=== PATIENT | male | born 1975 | race Caucasian/White ===

== ENCOUNTER 2016-10-13 19:38 | Emergency (ER) | payer SELFPAY ==
--- NOTE | 2016-10-13 20:19 | EKG REPORT ---
SEVERITY:- ABNORMAL ECG - SINUS RHYTHM PROBABLE INFERIOR INFARCT, OLD LATERAL LEADS ARE ALSO INVOLVED BORDERLINE PROLONGED QT INTERVAL : Confirmed by: Mike Hernández MD 13-Oct-2016 20:18:35
--- NOTE | 2016-10-13 23:47 | ER Document Report ---
ED Blood Pressure Problem - General Mode of Arrival: Ambulatory Information source: Patient TRAVEL OUTSIDE OF THE [place] IN LAST 30 DAYS: No - HPI Patient complains to provider of: High blood pressure Associated symptoms: Blurred vision, Headache Similar symptoms previously: Yes Recently seen / treated by doctor: No <RACHEL CHAPMAN - Last Filed: 10/14/16 03:44> <ZELALEM DIMAS - Last Filed: 10/14/16 05:45> - General Chief Complaint: High Blood Pressure Stated Complaint: BLOOD PRESSURE ISSUE Time Seen by Provider: 10/13/16 23:46 Notes: Patient is a 41-year-old male presented to the emergency department with hypertension, headache, vision changes and photophobia. Patient states that he has been out of his lisinopril and is almost out of his metformin. Patient has not taken his blood pressure medication at least 30 days. Patient has a history of noncompliance with his medications. Patient states he was at [facility] today when he started experiencing the headache, blurred vision and some photophobia. Patient states he is supposed to see Sharif Vidal however nurse states the patient cannot see this provider because he did not make his payment. (RACHEL CHAPMAN) - Related Data Allergies/Adverse Reactions: No Known Allergies Allergy (Verified 02/23/15 13:58) Past Medical History - General Information source: Patient - Social History Smoking Status: Never Smoker Cigarette use (# per day): No Chew tobacco use (# tins/day): No Smoking Education Provided: No Frequency of alcohol use: None Drug Abuse: None Family History: None Patient has suicidal ideation: No Patient has homicidal ideation: No - Past Medical History Cardiac Medical History: Reports: Hx Hypercholesterolemia, Hx Hypertension Pulmonary Medical History: Reports: Hx Bronchitis Endocrine Medical History: Reports: Hx Diabetes Mellitus Type 2 Past Surgical History: Reports: Hx Neurologic Surgery - Elevation of a depressed skull fracture at age 67 years old. - Immunizations Hx Diphtheria, Pertussis, Tetanus Vaccination: Yes <RACHEL CHAPMAN - Last Filed: 10/14/16 03:44> Review of Systems - Review of Systems Constitutional: No symptoms reported EENT: See HPI, Blurred vision, Other - Photophobia Cardiovascular: No symptoms reported Respiratory: No symptoms reported Gastrointestinal: No symptoms reported Genitourinary: No symptoms reported Male Genitourinary: No symptoms reported Musculoskeletal: No symptoms reported Skin: No symptoms reported Hematologic/Lymphatic: No symptoms reported Neurological/Psychological: See HPI, Headaches -: Yes All other systems reviewed and negative <RACHEL CHAPMAN - Last Filed: 10/14/16 03:44> Physical Exam - Vital signs Interpretation: Hypertensive <RACHEL CHAPMAN - Last Filed: 10/14/16 03:44> <ZELALEM DIMAS - Last Filed: 10/14/16 05:45> - Vital signs Vitals: Temp Pulse Resp BP Pulse Ox 97.6 F 79 20 200/120 H 96 10/13/16 19:44 10/13/16 19:44 10/13/16 19:44 10/13/16 19:44 10/13/16 19:44 - Notes Notes: GENERAL: Alert, interacts well. Mild distress. HEAD: Normocephalic, atraumatic. Tenderness to palpate the forehead, and bilateral parietal lobe. EYES: Appear normal. Pupils equal, round, and reactive to light. ENT: Moist mucus membranes, tongue midline. NECK: Full range of motion. Supple. Trachea midline. Tenderness to palpate posterior cervical musculature. LUNGS: Clear to auscultation bilaterally, no wheezes, rales, or rhonchi. No respiratory distress. HEART: Hypertensive. Regular rate and rhythm. No murmurs, gallops, or rubs. ABDOMEN: Soft, non-tender. Non-distended. Normal bowel sounds. EXTREMITIES: Moves all 4 extremities spontaneously. Normal strength. No edema. NEUROLOGICAL: Alert and oriented x3. Normal speech. No focal neurological deficits. GSC 15. PSYCH: Normal affect, normal mood. SKIN: Warm, dry, normal turgor. No rashes or lesions noted. (RACHEL CHAPMAN) Course <RACHEL CHAPMAN - Last Filed: 10/14/16 03:44> - EKG Interpretation by Ri EKG shows normal: Sinus rhythm Rate: Normal Rhythm: NSR <ZELALEM DIMAS - Last Filed: 10/14/16 05:45> - Re-evaluation Re-evalutation: 10/14/16 Patient is a 41-year-old male who comes in complaining of a headache and blurred vision intermittently. He had also written shortness of breath on his intake paperwork although patient denies any symptoms right now except for a slight headache. Patient is supposed to be taking medication for high blood pressure but he has not been able to afford it. He is also almost out of his metformin. Patient given lisinopril. Blood pressure has come down to 150s systolic. Complete resolution of headache. No chest pain or trouble breathing. Patient will be discharged home with lisinopril and a refill of Glucophage and [facility]. Understands and agrees with plan. Stable for discharge. (ZELALEM DIMAS) - Vital Signs Vital signs: Temp Pulse Resp BP Pulse Ox 97.6 F 79 18 153/84 H 94 10/13/16 19:44 10/13/16 19:44 10/14/16 03:01 10/14/16 03:01 10/14/16 03:01 Discharge <RACHEL CHAPMAN - Last Filed: 10/14/16 03:44> <ZELALEM DIMAS - Last Filed: 10/14/16 05:45> - Discharge Clinical Impression: Hypertension Qualifiers: Hypertension type: unspecified Qualified Code(s): I10 - Essential (primary) hypertension Diabetes mellitus Qualifiers: Diabetes mellitus type: type 2 Diabetes mellitus complication status: without complication Headache Qualifiers: Headache type: tension-type Headache chronicity pattern: acute headache Intractability: not intractable Qualified Code(s): G44.209 - Tension-type headache, unspecified, not intractable Condition: Stable Disposition: HOME, SELF-CARE Instructions: Family Physicians / Practices, Headache ([facility]), High Blood Pressure ([facility]) Additional Instructions: Please follow-up with the primary care doctor as soon as you are able. Prescriptions: Lisinopril 20 mg PO DAILY #90 tablet Metformin HCl [Glucophage 500 mg Tablet] 500 mg PO BIDACBS #180 tab Scribe Attestation: 10/14/16 05:45 I personally performed the services described in the documentation, reviewed and edited the documentation which was dictated to the scribe in my presence, and it accurately records my words and actions. (ZELALEM DIMAS) Scribe Documentation - Scribe Written by Michi:: Michi Mora, 10/14/2016 4:00 acting as scribe for :: Nunu <RACHEL CHAPMAN - Last Filed: 10/14/16 03:44>
[2016-10-14] MEDS ORDERED: ONDANSETRON 4 MG TAB.RAPDIS PO ONE (01:08)
[2016-10-14] MEDS ORDERED: LISINOPRIL 10 MG TABLET PO ONE (01:08)
[2016-10-14] MEDS ORDERED: ACETAMINOPHEN 325 MG TABLET PO ONE (01:08)
[2016-10-14 03:06] VITALS: BP 153/84
== END 2016-10-14 03:10 | disposition home or self-care (01) ==
LOC: ER 19:38
DX: I10 Essential (primary) hypertension (principal); T46.4X6A Underdosing of angiotensin-converting-enzyme inhibitors, initial encounter; Z91.120 Patient's intentional underdosing of medication regimen due to financial hardship; Z91.14 Patient's other noncompliance with medication regimen; E11.9 Type 2 diabetes mellitus without complications; Z79.84 Long term (current) use of oral hypoglycemic drugs; G44.209 Tension-type headache, unspecified, not intractable; H53.149 Visual discomfort, unspecified; H53.8 Other visual disturbances
CPT/HCPCS: 93005; 99283; 93010; S0119

== ENCOUNTER 2016-12-02 09:09 | Emergency (ER) | payer SELFPAY ==
[2016-12-02] MEDS ORDERED: CLONIDINE HCL 0.2 MG TABLET PO ONE (09:33)
--- NOTE | 2016-12-02 09:38 | ER Document Report ---
ED General - General Chief Complaint: High Blood Pressure Stated Complaint: HEADACHE BLURRED VISION Time Seen by Provider: 12/02/16 09:26 Mode of Arrival: Ambulatory Information source: Patient Notes: 41 yr old male non compliant with his htn and diabetes medications and has been seen here in the past for the same presents with complaints of high blood pressure , headache. Pt notes his blood pressure is normally 200s/110. states that he just started taking his lisinopril as prescribed , does not check his blood sugar and does not go to a pcp. currently patient is asymptomatic. TRAVEL OUTSIDE OF THE [place] IN LAST 30 DAYS: No - HPI Onset: Other Onset/Duration: Persistent Quality of pain: Achy Severity: Mild Pain Level: 1 Associated symptoms: Headache, Other Exacerbated by: Denies Relieved by: Denies Similar symptoms previously: Yes Recently seen / treated by doctor: Yes - Related Data Allergies/Adverse Reactions: No Known Allergies Allergy (Verified 02/23/15 13:58) Past Medical History - Social History Smoking Status: Never Smoker Cigarette use (# per day): No Chew tobacco use (# tins/day): No Smoking Education Provided: No Family History: None - Past Medical History Cardiac Medical History: Reports: Hx Hypercholesterolemia, Hx Hypertension Pulmonary Medical History: Reports: Hx Bronchitis Endocrine Medical History: Reports: Hx Diabetes Mellitus Type 2 Renal/ Medical History: Denies: Hx Peritoneal Dialysis Skin Medical History: Denies Hx MRSA Past Surgical History: Reports: Hx Neurologic Surgery - Elevation of a depressed skull fracture at age 67 years old. - Immunizations Hx Diphtheria, Pertussis, Tetanus Vaccination: Yes Review of Systems - Review of Systems Notes: REVIEW OF SYSTEMS: CONSTITUTIONAL : Denies fever, chills, or sweats. Denies recent illness. EENT: admits to intermittent bloody noses CARDIOVASCULAR: Denies chest pain. Denies palpitations or racing or irregular heart beat. Denies ankle edema. RESPIRATORY: Denies cough, cold, or chest congestion. Denies shortness of breath, difficulty breathing, or wheezing. GASTROINTESTINAL: Denies abdominal pain or distention. Denies nausea, vomiting , or diarrhea. Denies blood in vomitus, stools, or per rectum. Denies black, tarry stools. Denies constipation. GENITOURINARY: Denies difficulty urinating, painful urination, burning, frequency, blood in urine, or discharge. MUSCULOSKELETAL: Denies back or neck pain or stiffness. Denies joint pain or swelling. SKIN: Denies rash, lesions or sores. HEMATOLOGIC : Denies easy bruising or bleeding. LYMPHATIC: Denies swollen, enlarged glands. NEUROLOGICAL: admits to headache PSYCHIATRIC: Denies anxiety or stress. Denies depression, suicidal ideation, or homicidal ideation. ALL OTHER SYSTEMS REVIEWED AND NEGATIVE. Dictation was performed using [employer] voice recognition software PHYSICAL EXAMINATION: GENERAL: Well-appearing, well-nourished and in no acute distress. HEAD: Atraumatic, normocephalic. EYES: Pupils equal round and reactive to light, extraocular movements intact, sclera anicteric, conjunctiva are normal. ENT: Nares patent, oropharynx clear without exudates. Moist mucous membranes. NECK: Normal range of motion, supple without lymphadenopathy LUNGS: Breath sounds clear to auscultation bilaterally and equal. No wheezes rales or rhonchi. HEART: Regular rate and rhythm without murmurs ABDOMEN: Soft, nontender, nondistended abdomen. No guarding, no rebound. No masses appreciated. Musculoskeletal: Normal range of motion, no pitting or edema. No cyanosis. NEUROLOGICAL: Cranial nerves grossly intact. Normal speech, normal gait. Normal sensory, motor exams PSYCH: Normal mood, normal affect. SKIN: Warm, Dry, normal turgor, no rashes or lesions noted. Physical Exam - Vital signs Vitals: Temp Pulse Resp BP Pulse Ox 97.5 F 89 16 213/119 H 96 12/02/16 09:15 12/02/16 09:15 12/02/16 09:15 12/02/16 09:15 12/02/16 09:15 Course - Re-evaluation Re-evalutation: 12/02/16 09:37 pt is a very noncomplaint hypertensive diabetic who presents with chronically elevated blood pressure. i will treat with clonidine. I will order cbc cmp and hga1c. 12/02/16 10:[address] Cuevas regarding hemoglobin A1c metformin with glucotrol 5mg daily 12/02/16 10:36 Patient's blood pressure dropped approximately 20% we will discharge home He is asymptomatic at this time After performing a Medical Screening Examination, I estimate there is LOW risk for ACUTE GLAUCOMA, TEMPORAL ARTERITIS, MENINGITIS, INCRANIAL HEMORRHAGE, or ISCHEMIC STROKE thus I consider the discharge disposition reasonable. I have reevaluated this patient multiple times and no significant life threatening changes are noted. The patient and I have discussed the diagnosis and risks, and we agree with discharging home with close follow-up with the understanding that symptoms and presentations can change. We also discussed returning to the Emergency Department immediately if new or worsening symptoms occur. We have discussed the symptoms which are most concerning (e.g., changing or worsening symptoms, new numbness or weakness, vomiting, fever) that necessitate immediate return. - Vital Signs Vital signs: Temp Pulse Resp BP Pulse Ox 97.5 F 89 16 213/119 H 96 12/02/16 09:15 12/02/16 09:15 12/02/16 09:15 12/02/16 09:15 12/02/16 09:15 - Laboratory Result Diagrams: 12/02/16 09:43 12/02/16 09:43 Laboratory results interpreted by me: 12/02/16 12/02/16 09:43 09:43 Chloride 97 L Carbon Dioxide 31 H Glucose 376 H Hemoglobin A1c % 12.6 H ALT 80 H - Diagnostic Test Radiology reviewed: Image reviewed, Reports reviewed - sinusitis Discharge - Discharge Clinical Impression: Sinusitis Qualifiers: Sinusitis location: frontal Chronicity: subacute Qualified Code(s): J01.10 - Acute frontal sinusitis, unspecified HTN (hypertension) Qualifiers: Hypertension type: essential hypertension Qualified Code(s): I10 - Essential ( primary) hypertension Uncontrolled diabetes mellitus Qualifiers: Diabetes mellitus type: type 2 Diabetes mellitus complication status: without complication Diabetes mellitus detention insulin use: without detention use Qualified Code(s): E11.65 - Type 2 diabetes mellitus with hyperglycemia Condition: Stable Disposition: HOME, SELF-CARE Instructions: High Blood Pressure ([facility]), High Blood Pressure, Requiring Treatment ([facility]), Clonidine (Catapres) ([facility]), Sinusitis ([facility]), Diabetes ([facility]) Prescriptions: Amoxicillin 875 mg PO BID #20 tablet Clonidine HCl [Clonidine HCl ER] 0.2 mg PO Q12 #60 tab.er.12h Glipizide [Glipizide Xl] 5 mg PO DAILY #30 tab.er.24 Referrals: KARISHMA CAN MD [ACTIVE STAFF] - Follow up tomorrow
[2016-12-02 09:54] LABS: ABSOLUTE BASOPHILS # (AUTO) 0.1 10^3/uL (0.0-0.2); ABSOLUTE EOSINOPHILS # (AUTO) 0.2 10^3/uL (0.0-0.6); ABSOLUTE LYMPHOCYTES (AUTO) 2.7 10^3/uL (0.5-4.7); ABSOLUTE MONOCYTES (AUTO) 0.6 10^3/uL (0.1-1.4); ABSOLUTE NEUT (AUTO) 4.7 10^3/uL (1.7-8.2); BASOPHILS % (AUTO) 0.7 % (0-2); EOSINOPHILS % (AUTO) 2.7 % (0-6); HEMATOCRIT 43.9 % (37.9-51.0); HEMOGLOBIN 15.5 g/dL (13.5-17.0); HGB HCT DIFFERENCE 2.6; LYMPHOCYTES % (AUTO) 32.5 % (13-45); MEAN CORPUSCULAR HEMOGLOBIN 28.3 pg (27.0-33.4); MEAN CORPUSCULAR HGB CONC 35.2 g/dL (32.0-36.0); MEAN CORPUSCULAR VOLUME 80 fl (80-97); MONOCYTES % (AUTO) 7.7 % (3-13); RED BLOOD COUNT 5.47 10^6/uL (4.35-5.55); RED CELL DISTRIBUTION WIDTH 12.9 % (11.5-14.0); SEGMENTED NEUTROPHILS % (AUTO) 56.4 % (42-78); WHITE BLOOD COUNT 8.3 10^3/uL (4.0-10.5)
[2016-12-02 10:12] LABS: ALANINE AMINOTRANSFERASE 80 U/L (21-72); ALBUMIN 3.9 g/dL (3.5-5.0); ALKALINE PHOSPHATASE 100 U/L (38-126); ANION GAP 11 (5-19); ASPARTATE AMINO TRANSFERASE 38 U/L (17-59); BILIRUBIN,DIRECT 0.4 mg/dL (0.0-0.4); BILIRUBIN,TOTAL 0.5 mg/dL (0.2-1.3); BLOOD UREA NITROGEN 10 mg/dL (7-20); CALCIUM 10.1 mg/dL (8.4-10.2); CARBON DIOXIDE 31 mmol/L (22-30); CHLORIDE 97 mmol/L (98-107); CREATININE RESULT 0.72 mg/dL (0.52-1.25); GLUCOSE 376 mg/dL (75-110); POTASSIUM 4.3 mmol/L (3.6-5.0); SODIUM 139.1 mmol/L (137-145); TOTAL PROTEIN 6.7 g/dL (6.3-8.2)
--- NOTE | 2016-12-02 10:26 | RADIOLOGY REPORT (SQ) ---
EXAM DESCRIPTION: CT HEAD WITHOUT COMPLETED DATE/TIME: 12/02/2016 9:52 am REASON FOR STUDY: headache , htn COMPARISON: 05/15/2008 TECHNIQUE: Axial images acquired through the brain without intravenous contrast. Images reviewed wi th bone, brain and subdural windows. Images stored on PACS. All CT scanners at this facility use dose modulation, iterative reconstruction, and/or weight based d osing when appropriate to reduce radiation dose to as low as reasonably achievable (ALARA). [facility]: Dose Right [facility]: CareDose [facility]: Dose Right [facility]: Teradose 4D [facility]: Smart ARKeX RADIATION DOSE: Up-to-date CT equipment and radiation dose reduction techniques were employed. CTDIv ol: 64.6 mGy. DLP: 1034 mGy-cm. mGy. LIMITATIONS: None. FINDINGS: VENTRICLES: Normal size and contour. CEREBRUM: No masses. No hemorrhage. No midline shift. No evidence for acute infarction. Normal gra y/white matter differentiation. No areas of low density in the white matter. CEREBELLUM: No masses. No hemorrhage. No alteration of density. No evidence for acute infarction. EXTRAAXIAL SPACES: No fluid collections. No masses. ORBITS AND GLOBE: No intra- or extraconal masses. Normal contour of globe without masses. CALVARIUM: No fracture. PARANASAL SINUSES: Mucoperiosteal thickening is seen in both maxillary sinuses, left more than right, the ethmoid air cells and sphenoid sinuses. SOFT TISSUES: No mass or hematoma. OTHER: No other significant finding. IMPRESSION: Extensive sinus disease with no acute intracranial pathology. EVIDENCE OF ACUTE STROKE: NO. COMMENT: Quality ID # [id number]: Final reports with documentation of one or more dose reduction techniques (e.g., Automated exposure control, adjustment of the mA and/or kV according to patient size, use of iterative reconstruction technique) TECHNICAL DOCUMENTATION: JOB ID: [id number] [employer]- All Rights Reserved
[2016-12-02 11:21] VITALS: BP 149/97
== END 2016-12-02 11:10 | disposition home or self-care (01) ==
LOC: ER 09:09
DX: J01.10 Acute frontal sinusitis, unspecified (principal); E11.65 Type 2 diabetes mellitus with hyperglycemia; I10 Essential (primary) hypertension; R51 Headache; H53.8 Other visual disturbances; Z79.899 Other long term (current) drug therapy
CPT/HCPCS: 36415; 70450; 80053; 83036; 85025; 99284

== ENCOUNTER 2017-03-11 07:14 | Emergency (ER) | payer SELFPAY ==
[2017-03-11] MEDS ORDERED: CLONIDINE HCL 0.1 MG TABLET PO ONE (08:06)
[2017-03-11 08:17] LABS: ABSOLUTE BASOPHILS # (AUTO) 0.1 10^3/uL (0.0-0.2); ABSOLUTE EOSINOPHILS # (AUTO) 0.1 10^3/uL (0.0-0.6); ABSOLUTE LYMPHOCYTES (AUTO) 3.4 10^3/uL (0.5-4.7); ABSOLUTE MONOCYTES (AUTO) 0.9 10^3/uL (0.1-1.4); ABSOLUTE NEUT (AUTO) 5.3 10^3/uL (1.7-8.2); BASOPHILS % (AUTO) 0.7 % (0-2); EOSINOPHILS % (AUTO) 1.5 % (0-6); HEMATOCRIT 44.6 % (37.9-51.0); HEMOGLOBIN 15.5 g/dL (13.5-17.0); LYMPHOCYTES % (AUTO) 34.6 % (13-45); MEAN CORPUSCULAR HEMOGLOBIN 27.9 pg (27.0-33.4); MEAN CORPUSCULAR HGB CONC 34.7 g/dL (32.0-36.0); MEAN CORPUSCULAR VOLUME 80 fl (80-97); MONOCYTES % (AUTO) 8.8 % (3-13); PLATELET COUNT 229 10^3/uL (150-450); RED BLOOD COUNT 5.55 10^6/uL (4.35-5.55); RED CELL DISTRIBUTION WIDTH 12.9 % (11.5-14.0); SEGMENTED NEUTROPHILS % (AUTO) 54.4 % (42-78); TOTAL CELLS COUNTED % (AUTO) 100 %; WHITE BLOOD COUNT 9.7 10^3/uL (4.0-10.5)
[2017-03-11 08:25] LABS: INTERNATIONAL RATION (INR) 0.91; PROTHROMBIN TIME 12.9 SEC (11.4-15.4)
--- NOTE | 2017-03-11 08:31 | RADIOLOGY REPORT (SQ) ---
EXAM DESCRIPTION: CHEST SINGLE VIEW COMPLETED DATE/TIME: 03/11/2017 8:15 am REASON FOR STUDY: Chest pain. COMPARISON: Chest x-ray 02/23/2016. EXAM PARAMETERS: NUMBER OF VIEWS: One view. TECHNIQUE: Single frontal radiographic view of the chest acquired. RADIATION DOSE: NA LIMITATIONS: None. FINDINGS: LUNGS AND PLEURA: No consolidation, pneumothorax or pleural effusion. MEDIASTINUM AND HILAR STRUCTURES: No masses. Contour normal. HEART AND VASCULAR STRUCTURES: Heart normal in size. No overt vascular congestion. BONES: No acute findings. HARDWARE: None in the chest. IMPRESSION: No acute radiographic finding in the chest. TECHNICAL DOCUMENTATION: JOB ID: [id number] 2010 [employer]- All Rights Reserved
[2017-03-11 08:33] LABS: ALANINE AMINOTRANSFERASE 90 U/L (21-72); ALBUMIN 3.6 g/dL (3.5-5.0); ALKALINE PHOSPHATASE 82 U/L (38-126); ANION GAP 11 (5-19); ASPARTATE AMINO TRANSFERASE 41 U/L (17-59); BILIRUBIN,DIRECT 0.2 mg/dL (0.0-0.4); BILIRUBIN,TOTAL 0.5 mg/dL (0.2-1.3); BLOOD UREA NITROGEN 12 mg/dL (7-20); CARBON DIOXIDE 29 mmol/L (22-30); CHLORIDE 97 mmol/L (98-107); CREATINE KINASE 75 U/L (55-170); GLUCOSE 376 mg/dL (75-110); LIPASE 158.6 U/L (23-300); MAGNESIUM 1.9 mg/dL (1.6-2.3); POTASSIUM 3.8 mmol/L (3.6-5.0); SODIUM 136.7 mmol/L (137-145)
[2017-03-11 08:45] LABS: CREATINE KINASE MB 0.73 ng/mL (<4.55)
[2017-03-11 08:52] LABS: TROPONIN I < 0.012 ng/mL
--- NOTE | 2017-03-11 09:25 | EKG REPORT ---
SEVERITY:- ABNORMAL ECG - SINUS RHYTHM BORDERLINE INFERIOR Q WAVES NONSPECIFIC T ABNORMALITIES, LATERAL LEADS BORDERLINE PROLONGED QT INTERVAL : Confirmed by: Mike Hernández MD 11-Mar-2017 09:24:55
--- NOTE | 2017-03-11 12:09 | ER Document Report ---
ED General - General Chief Complaint: Chest Pain Stated Complaint: CHEST PAIN BEHIND LEFT SHOULDER Time Seen by Provider: 03/11/17 07:33 TRAVEL OUTSIDE OF THE [place] IN LAST 30 DAYS: No - HPI Patient complains to provider of: Left-sided chest pain elevated blood pressure Notes: Patient coming in for left-sided chest pain woke him up from sleep around 2 AM this morning. Patient states pain is increased with movement of his left shoulder. Patient states pain is in the left side chest goes through to the left shoulder blade. Patient denies any recent travel denies any shortness of breath nausea vomiting diarrhea. Patient has a history of noncompliance with his medications for diabetes and hypertension. Patient has not had any medications for both of these for "quite some time". Upon my evaluation patient is resting currently. Patient states he does follow up with the [facility]. Has not seen the physician in "quite some time. Denies any trauma. - Related Data Allergies/Adverse Reactions: No Known Allergies Allergy (Verified 03/11/17 08:08) Past Medical History - Social History Smoking Status: Never Smoker Frequency of alcohol use: None Drug Abuse: None Family History: None Patient has suicidal ideation: No Patient has homicidal ideation: No - Past Medical History Cardiac Medical History: Reports: Hx Hypercholesterolemia, Hx Hypertension Pulmonary Medical History: Reports: Hx Bronchitis Endocrine Medical History: Reports: Hx Diabetes Mellitus Type 2 Renal/ Medical History: Denies: Hx Peritoneal Dialysis Skin Medical History: Denies Hx MRSA Past Surgical History: Reports: Hx Cholecystectomy, Hx Neurologic Surgery - Elevation of a depressed skull fracture at age 67 years old. - Immunizations Hx Diphtheria, Pertussis, Tetanus Vaccination: Yes Review of Systems - Review of Systems Constitutional: No symptoms reported EENT: No symptoms reported Cardiovascular: Chest pain Respiratory: No symptoms reported Gastrointestinal: No symptoms reported Genitourinary: No symptoms reported Male Genitourinary: No symptoms reported Musculoskeletal: No symptoms reported Skin: No symptoms reported Hematologic/Lymphatic: No symptoms reported Neurological/Psychological: No symptoms reported -: Yes All other systems reviewed and negative Physical Exam - Vital signs Vitals: Temp Pulse Resp BP Pulse Ox 97.3 F 83 20 206/114 H 98 03/11/17 07:27 03/11/17 07:27 03/11/17 07:27 03/11/17 07:27 03/11/17 07:27 Interpretation: Normal - General General appearance: Appears well, Alert - HEENT Head: Normocephalic, Atraumatic Eyes: Normal Pupils: PERRL - Respiratory Respiratory status: No respiratory distress Chest status: Tender - Tenderness to palpation on the anterior chest wall and left side. Movement of the shoulder also reproduces the patient's pain in the chest and in the shoulder blade. Breath sounds: Normal Chest palpation: Normal - Cardiovascular Rhythm: Regular Heart sounds: Normal auscultation Murmur: No - Abdominal Inspection: Normal Distension: No distension Bowel sounds: Normal Tenderness: Nontender Organomegaly: No organomegaly - Back Back: Normal, Nontender - Extremities General upper extremity: Normal inspection, Nontender, Normal color, Normal ROM , Normal temperature General lower extremity: Normal inspection, Nontender, Normal color, Normal ROM , Normal temperature, Normal weight bearing. No: Virgil's sign - Neurological Neuro grossly intact: Yes Cognition: Normal Orientation: AAOx4 Sebastian Coma Scale Eye Opening: Spontaneous Sebastian Coma Scale Verbal: Oriented [place] Coma Scale Motor: Obeys Commands Sebastian Coma Scale Total: 15 Speech: Normal Motor strength normal: LUE, RUE, LLE, RLE Sensory: Normal - Psychological Associated symptoms: Normal affect, Normal mood - Skin Skin Temperature: Warm Skin Moisture: Dry Skin Color: Normal Course - Re-evaluation Re-evalutation: 03/11/17 12:04 Because of the patient's noncompliance 2 troponins were performed. Both returned negative. EKGs were repeated. Patient resting comfortably improvement of his blood pressure with clonidine. Chest pain-free at this time. Offered admission for the patient however patient declined this time with 2 negative troponins states she will follow-up with go to medical clinic. I will give his information to our drug abuse social worker for close follow-up. We will start the patient back on his metformin and his lisinopril. - Vital Signs Vital signs: Temp Pulse Resp BP Pulse Ox 97.3 F 83 19 156/93 H 96 03/11/17 07:27 03/11/17 07:27 03/11/17 11:41 03/11/17 11:41 03/11/17 11:41 - Laboratory Result Diagrams: 03/11/17 08:00 03/11/17 08:00 Laboratory results interpreted by me: 03/11/17 08:00 Sodium 136.7 L Chloride 97 L Glucose 376 H ALT 90 H Total Protein 6.0 L Discharge - Discharge Clinical Impression: Chest pain Qualifiers: Chest pain type: unspecified Qualified Code(s): R07.9 - Chest pain, unspecified Diabetes Qualifiers: Diabetes mellitus type: type 2 Diabetes mellitus complication status: without complication Diabetes mellitus detention insulin use: without detention use Qualified Code(s): E11.9 - Type 2 diabetes mellitus without complications Hypertension Qualifiers: Hypertension type: essential hypertension Qualified Code(s): I10 - Essential ( primary) hypertension Condition: Good Disposition: HOME, SELF-CARE Instructions: Chest Pain of Unclear Cause ([facility]), Chest Wall Pain ([facility]), Aspirin (Cardiac) ([facility]), Glucophage ([facility]), High Blood Pressure, Requiring Treatment ([facility]) Additional Instructions: It is very important to follow-up with his medical clinic for further evaluation of your chronic underlying diseases. It is very important to continue take the medications as prescribed. Return to the ER symptoms worsen. Prescriptions: Lisinopril [Zestril] 20 mg PO DAILY #30 tablet Metformin HCl 500 mg PO BID #60 tablet Forms: Return to Work
[2017-03-11 12:14] VITALS: BP 153/85
--- NOTE | 2017-03-11 16:25 | EKG REPORT ---
SEVERITY:- ABNORMAL ECG - SINUS RHYTHM BORDERLINE INFERIOR Q WAVES ABNORMAL T, CONSIDER ISCHEMIA, LATERAL LEADS BORDERLINE PROLONGED QT INTERVAL : Confirmed by: Mike Hernández MD 11-Mar-2017 16:24:25
== END 2017-03-11 12:20 | disposition home or self-care (01) ==
LOC: ER 07:14
DX: R07.9 Chest pain, unspecified (principal); E11.9 Type 2 diabetes mellitus without complications; T38.3X6A Underdosing of insulin and oral hypoglycemic [antidiabetic] drugs, initial encounter; I10 Essential (primary) hypertension; T46.4X6A Underdosing of angiotensin-converting-enzyme inhibitors, initial encounter; Z91.14 Patient's other noncompliance with medication regimen
CPT/HCPCS: 36415; 71045; 80053; 82550; 82553; 83690; 83735; 84484; 85025; 85610; 93005; 93010; 99285

== ENCOUNTER 2017-07-07 21:00 | Emergency (ER) | payer SELFPAY ==
--- NOTE | 2017-07-07 21:11 | ER Document Report ---
ED Burn/Smoke/Toxic Fumes - General Stated Complaint: KNEE PAIN TRAVEL OUTSIDE OF THE [place] IN LAST 30 DAYS: No - Related Data Allergies/Adverse Reactions: No Known Allergies Allergy (Verified 03/11/17 08:08) Past Medical History - Social History Family History: None - Past Medical History Cardiac Medical History: Reports: Hx Hypercholesterolemia, Hx Hypertension Pulmonary Medical History: Reports: Hx Bronchitis Endocrine Medical History: Reports: Hx Diabetes Mellitus Type 2 Renal/ Medical History: Denies: Hx Peritoneal Dialysis Skin Medical History: Denies Hx MRSA Past Surgical History: Reports: Hx Cholecystectomy, Hx Neurologic Surgery - Elevation of a depressed skull fracture at age 67 years old. - Immunizations Hx Diphtheria, Pertussis, Tetanus Vaccination: Yes
--- NOTE | 2017-07-07 22:24 | RADIOLOGY REPORT (SQ) ---
EXAM DESCRIPTION: KNEE LEFT 3 VIEWS COMPLETED DATE/TIME: 07/07/2017 10:04 pm REASON FOR STUDY: pain COMPARISON: 04/17/2009 NUMBER OF VIEWS: Three views. TECHNIQUE: AP, lateral, and sunrise patella radiographic images acquired of the left knee. LIMITATIONS: None. FINDINGS: MINERALIZATION: Normal. BONES: No acute fracture or dislocation. No worrisome bone lesions. Incidental note is made of mild lateral patellar tilt. JOINT: A moderate joint effusion is present. SOFT TISSUES: No soft tissue swelling. No radio-opaque foreign body. OTHER: No other significant finding. IMPRESSION: Moderate joint effusion. No evidence of significant osseous abnormality. TECHNICAL DOCUMENTATION: JOB ID: [id number] [email or web address] - [employer]- All Rights Reserved Reading location - IP/workstation name: [email or web address]
[2017-07-07] MEDS ORDERED: COLCHICINE 0.6 MG TABLET PO ONE ×2 (22:44→22:45)
[2017-07-07] MEDS ORDERED: KETOROLAC TROMETHAMINE 60 MG/2 ML SDV IM ONE (22:44)
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
[2017-07-08 00:48] VITALS: BP 176/102
== END 2017-07-08 00:49 | disposition home or self-care (01) ==
LOC: ER 21:00
DX: M10.9 Gout, unspecified (principal); M25.562 Pain in left knee; M25.462 Effusion, left knee; I10 Essential (primary) hypertension; E11.9 Type 2 diabetes mellitus without complications
CPT/HCPCS: 99283; 96372; 73562; J1885

== ENCOUNTER 2017-11-20 07:11 | Emergency (ER) | payer SELFPAY ==
--- NOTE | 2017-11-20 07:57 | RADIOLOGY REPORT (SQ) ---
EXAM DESCRIPTION: ANKLE RIGHT COMPLETE COMPLETED DATE/TIME: 11/20/2017 7:45 am REASON FOR STUDY: pain COMPARISON: None. NUMBER OF VIEWS: Three views. TECHNIQUE: AP, lateral, and oblique radiographic images acquired of the right ankle. LIMITATIONS: None. FINDINGS: MINERALIZATION: Normal. BONES: No acute fracture or dislocation. Plantar calcaneal spur. JOINTS: No effusions. SOFT TISSUES: No soft tissue swelling. No foreign body. OTHER: No other significant finding. IMPRESSION: 1. NEGATIVE STUDY OF THE RIGHT ANKLE. TECHNICAL DOCUMENTATION: JOB ID: [id number] [employer]- All Rights Reserved Reading location - IP/workstation name: [email or web address]
[2017-11-20] MEDS ORDERED: CLONIDINE HCL 0.1 MG TABLET PO ONE (09:02)
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
[2017-11-20 10:29] VITALS: BP 172/103
== END 2017-11-20 10:38 | disposition home or self-care (01) ==
LOC: ER 07:11
DX: L03.115 Cellulitis of right lower limb (principal); S93.401A Sprain of unspecified ligament of right ankle, initial encounter; X58.XXXA Exposure to other specified factors, initial encounter; E78.00 Pure hypercholesterolemia, unspecified; I10 Essential (primary) hypertension; E11.9 Type 2 diabetes mellitus without complications; Z90.49 Acquired absence of other specified parts of digestive tract
CPT/HCPCS: 99283; 73610; L1902

== ENCOUNTER 2019-12-30 17:36 | Emergency (ER) | payer SELFPAY ==
--- NOTE | 2019-12-30 17:59 | ER Document Report ---
ED Medical Screen (RME) - General Chief Complaint: Blood Pressure Problem Stated Complaint: SKIN ISSUE, POSSIBLE BLOOD SUGAR PROBLEMS Time Seen by Provider: 12/30/19 17:49 Mode of Arrival: Ambulatory Information source: Patient Notes: 44-year-old male presented to ED for blood pressure of 254/124 in the pit room. He states he is history of high blood pressure cholesterol diabetes and a stroke a year ago. He has multiple other concerns that I have updated in the computer. He states he has not had any of his medicine since July. That includes his diabetes medicine his cholesterol medicines and his high blood pressure medicines. He states he has been having a headache. He states he ate a bag of gummy worms today and developed petechiae to his right hand and arm. He states he does not smoke drink or use any illicit drugs. States he has not had any insurance so he cannot go to the doctor because he does not have the $90 to pay for the doctor visit so he has not gotten any of his medicines since July. 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 I have greeted and performed a rapid initial assessment of this patient. A comprehensive ED assessment and evaluation of the patient, analysis of test results and completion of medical decision making process will be conducted by an additional ED providers. TRAVEL OUTSIDE OF THE [place] IN LAST 30 DAYS: No - Related Data Allergies/Adverse Reactions: No Known Allergies Allergy (Verified 11/20/17 07:15) Past Medical History - General Information source: Patient - Social History Cigarette use (# per day): No Frequency of alcohol use: None Drug Abuse: None Family history: Reviewed & Not Pertinent - Past Medical History Cardiac Medical History: Reports: Hx Hypercholesterolemia, Hx Hypertension Pulmonary Medical History: Reports: Hx Bronchitis Neurological Medical History: Reports: Hx Cerebrovascular Accident Endocrine Medical History: Reports: Hx Diabetes Mellitus Type 2 Renal/ Medical History: Reports: None. Denies: Hx Peritoneal Dialysis Malignancy Medical History: Reports None GI Medical History: Reports: None Musculoskeltal Medical History: Reports None Skin Medical History: Reports None Psychiatric Medical History: Reports: None Traumatic Medical History: Reports: None Infectious Medical History: Reports: None Past Surgical History: Reports: Hx Cholecystectomy, Hx Neurologic Surgery - Elevation of a depressed skull fracture at age 67 years old. - Immunizations Hx Diphtheria, Pertussis, Tetanus Vaccination: Yes Physical Exam - Vital signs Vitals: Temp Pulse Resp BP Pulse Ox 97.5 F 85 18 254/120 H 98 12/30/19 17:43 12/30/19 17:43 12/30/19 17:43 12/30/19 17:43 12/30/19 17:43 Course - Vital Signs Vital signs: Temp Pulse Resp BP Pulse Ox 97.5 F 85 18 254/120 H 98 12/30/19 17:43 12/30/19 17:43 12/30/19 17:43 12/30/19 17:43 12/30/19 17:43
[2019-12-30 18:21] LABS: ABSOLUTE BASOPHILS # (AUTO) 0.1 10^3/uL (0.0-0.2); ABSOLUTE EOSINOPHILS # (AUTO) 0.2 10^3/uL (0.0-0.6); ABSOLUTE LYMPHOCYTES (AUTO) 3.9 10^3/uL (0.5-4.7); ABSOLUTE MONOCYTES (AUTO) 1.1 10^3/uL (0.1-1.4); BASOPHILS % (AUTO) 1.2 % (0-2); EOSINOPHILS % (AUTO) 1.5 % (0-6); HEMATOCRIT 44.8 % (37.9-51.0); HEMOGLOBIN 15.4 g/dL (13.5-17.0); LYMPHOCYTES % (AUTO) 34.4 % (13-45); MEAN CORPUSCULAR HEMOGLOBIN 27.8 pg (27.0-33.4); MEAN CORPUSCULAR HGB CONC 34.4 g/dL (32.0-36.0); MEAN CORPUSCULAR VOLUME 81 fl (80-97); PLATELET COUNT 284 10^3/uL (150-450); RED BLOOD COUNT 5.53 10^6/uL (4.35-5.55); RED CELL DISTRIBUTION WIDTH 13.3 % (11.5-14.0); SEGMENTED NEUTROPHILS % (AUTO) 52.9 % (42-78); TOTAL CELLS COUNTED % (AUTO) 100 %; WHITE BLOOD COUNT 11.4 10^3/uL (4.0-10.5)
[2019-12-30 19:02] LABS: ALBUMIN 4.3 g/dL (3.5-5.0); ALKALINE PHOSPHATASE 117 U/L (38-126); ANION GAP 10 (5-19); ASPARTATE AMINO TRANSFERASE 31 U/L (17-59); BILIRUBIN,DIRECT 0.1 mg/dL (0.0-0.4); BILIRUBIN,TOTAL 0.4 mg/dL (0.2-1.3); BLOOD UREA NITROGEN 22 mg/dL (7-20); CALCIUM 9.2 mg/dL (8.4-10.2); CARBON DIOXIDE 29 mmol/L (22-30); CHLORIDE 100 mmol/L (98-107); GLUCOSE 169 mg/dL (75-110); PHOSPHORUS 4.4 mg/dL (2.5-4.5); TOTAL PROTEIN 7.5 g/dL (6.3-8.2)
[2019-12-30] MEDS ORDERED: LABETALOL HCL INJ 20 MG/4 ML DISP.SYRIN IV ONE (19:17)
[2019-12-30] MEDS ORDERED: NITROGLYCERIN 2% OINTMENT 1 GM PACKET TP ONE (19:18)
--- NOTE | 2019-12-30 19:22 | ER Document Report ---
ED General - General Chief Complaint: High Blood Pressure Stated Complaint: SKIN ISSUE, POSSIBLE BLOOD SUGAR PROBLEMS Time Seen by Provider: 12/30/19 17:49 Primary Care Provider: [facility] [Provider Group] - Follow up as needed Mode of Arrival: Ambulatory Information source: Patient Notes: This 44-year-old man presents to the emergency department with a complaint of a rash on the back of his right hand. He notes that he had developed an area of erythematous discoloration on the back of the right hand extending to the right wrist. He has a history of diabetes mellitus and hypertension has been noncompliant with medications also noted to have a markedly elevated blood pressure in the emergency department. Able to afford her medications and has been trying with diet and exercise to control the blood sugar. Rash does not itch there is no pain and there is no associated swelling. He also notes that the erythema is beginning to improve. He has a history of hypertension and has been off of the medication for over a month. TRAVEL OUTSIDE OF THE [place] IN LAST 30 DAYS: No - Related Data Allergies/Adverse Reactions: No Known Allergies Allergy (Verified 11/20/17 07:15) Past Medical History - General Information source: Patient - Social History Smoking Status: Former Smoker Cigarette use (# per day): No Frequency of alcohol use: Rare Drug Abuse: None Family History: None, Reviewed & Not Pertinent - Past Medical History Cardiac Medical History: Reports: Hx Hypercholesterolemia, Hx Hypertension Pulmonary Medical History: Reports: Hx Bronchitis Neurological Medical History: Reports: Hx Cerebrovascular Accident Endocrine Medical History: Reports: Hx Diabetes Mellitus Type 2 Renal/ Medical History: Reports: None. Denies: Hx Peritoneal Dialysis Malignancy Medical History: Reports None GI Medical History: Reports: None Musculoskeletal Medical History: Reports None Skin Medical History: Reports None Psychiatric Medical History: Reports: None Traumatic Medical History: Reports: None Infectious Medical History: Reports: None Past Surgical History: Reports: Hx Cholecystectomy, Hx Neurologic Surgery - Elevation of a depressed skull fracture at age 67 years old. - Immunizations Hx Diphtheria, Pertussis, Tetanus Vaccination: Yes Review of Systems - Review of Systems Notes: Constitutional: Negative for fever. HENT: Negative for sore throat. Eyes: Negative for visual changes. Cardiovascular: Negative for chest pain. Respiratory: Negative for shortness of breath. Gastrointestinal: Negative for abdominal pain, vomiting or diarrhea. Genitourinary: Negative for dysuria. Musculoskeletal: Negative for back pain. Skin: + Rash Neurological: Negative for headaches, weakness or numbness. 10 point ROS negative except as marked above and in HPI. Physical Exam - Vital signs Vitals: Temp Pulse Resp BP Pulse Ox 97.5 F 85 18 254/120 H 98 12/30/19 17:43 12/30/19 17:43 12/30/19 17:43 12/30/19 17:43 12/30/19 17:43 - Notes Notes: PHYSICAL EXAMINATION: Physical Exam: General: Well-nourished well-developed 44-year-old man in no acute distress HEENT: NC/AT, pupils equal round and reactive to light, MM moist,nares clear, oropharynx clear, airway patent Neck: supple, no adenopathy, no masses. Good range of motion Lungs: clear, no wheezing, no rales no rhonchi CVS: Regular rate and rhythm no murmur gallop or rub Abdomen: Soft, active, nontender, no masses, no hepatosplenomegaly Ext: No edema, clubbing or cyanosis. Neuro: Alert and responsive, moving all 4 extremities on command, cranial nerves intact, no focal findings Skin: Nonblanchable erythema of the right dorsum of the hand extending to the right dorsal wrist. There is no swelling, no pruritus and no raised lesions. PSYCH: Normal mood, normal affect. Course - Re-evaluation Re-evalutation: 12/30/19 20:47 44-year-old man presenting with a history of hypertension uncontrolled and off of his diabetes medicine. Developing erythematous macular rash on the back of his hand. The rash has improved while he is here in the emergency department. He is given IV labetalol for blood pressure with some improvement. Blood pressure which had been 225/134 was 202/101. I am starting him back on his oral medications. Lisinopril 40. We will also provide a prescription for lisinopril and Metformin. I encouraged the patient to continue his medications and to [facility]. 12/30/19 21:18 - Vital Signs Vital signs: Temp Pulse Resp BP Pulse Ox 98.0 F 85 19 235/115 H 97 12/30/19 18:56 12/30/19 17:43 12/30/19 18:20 12/30/19 18:20 12/30/19 18:20 - Laboratory Result Diagrams: 12/30/19 18:09 12/30/19 18:09 Laboratory results interpreted by me: 12/30/19 12/30/19 12/30/19 18: 18: 18:20 WBC 11.4 H BUN 22 H Glucose 169 H POC Glucose 148 H - EKG Interpretation by Me Rate: Normal - EKG interpreted by Dr. Pierre: Normal sinus rhythm, rate 76, MA interval 168 ms QT interval 444 ms, borderline prolonged QT interval normal axis, nonspecific T wave normality abnormalities, no previous EKG for comparison. Interpretation normal EKG Discharge - Discharge Clinical Impression: Poorly-controlled hypertension, Non compliance w medication regimen, Rash and nonspecific skin eruption Type II diabetes mellitus Qualifiers: Diabetes mellitus skilled nursing insulin use: without skilled nursing use Diabetes mellitus complication status: without complication Qualified Code(s): E11.9 - Type 2 diabetes mellitus without complications Condition: Good Disposition: HOME, SELF-CARE Instructions: Angiotensin Converting Enzyme Inhibitor Medication ([facility]) Additional Instructions: You were seen in the emergency department today for a rash on the hands and it appears to be nonspecific rash which may be related to the diabetes and your vascular status. Your blood pressure was also noted to be [id number]. I am writing a prescription for lisinopril and metoprolol to be restarted and you should follow-up with the [facility] as they will be able to continue you on your medications and monitor the blood pressure closely. The clinic can also help provide the diabetic medications if needed. If your symptoms are worsening or if you have other concerns you may return to the emergency department for further evaluation and treatment HOME CARE INSTRUCTIONS & INFORMATION: Thank you for choosing us for your medical needs. We hope you're satisfied with the care you received. After you leave, you must properly care for your problem and, at the same time, observe its progress. Any condition can change. Some illnesses can change rapidly over hours or days. If your condition worsens, return to the Emergency Department or see your physician promptly. ABOUT YOUR X-RAYS AND EKG'S: If you had an EKG or X-rays taken, they have been read by the Emergency Physician. The X-rays and EKG's will also be read by a Radiologist or Sql Database Programmer within 24 hours. If discrepancies are noted, you will be notified by telephone. Please be certain the ED has a correct telephone number & address where you can be reached. Also, realize that some fractures or abnormalities do not show up on initial X-rays. If your symptoms continue, see your physician. ABOUT YOUR LABORATORY TEST: If you had laboratory tests, the results have been reviewed by the Emergency Physician. Some test results (for example cultures) may not be available for several days. You will be contacted if any test result shows you need additional treatment. Please be certain the ED has a correct telephone number and address where you can be reached. ABOUT YOUR MEDICATIONS: You will receive instructions on how to take your medicine on the prescription label you receive. Additional information may be provided by the Pharmacy. If you have questions afterwards, call the ED for clarification or further instructions. Some prescribed medications may cause drowsiness. Do not perform tasks such as driving a car or operating machinery without consulting your Pharmacist. If you feel you need a refill of pain medication, your condition will need re-evaluation. Please do not call for a refill of any medication. ABOUT YOUR SIGNATURE: Signature of this document acknowledges to followin. Understanding that you received emergency treatment and that you may be released before al medical problems are known or treated. Please be certain the ED has a correct phone number & address where you can be reached. 2. Acknowledgement that you will arrange for follow-up care as recommended. 3. Authorization for the Emergency Physician to provide information to your follow-up Physician in order to maximize your care. AT ANY TIME, IF YOUR SYMPTOMS CHANGE SIGNIFICANTLY OR WORSEN OR YOU DEVELOP NEW SYMPTOMS, RETURN TO THE EMERGENCY DEPARTMENT IMMEDIATELY FOR RE-EVALUATION. OUR GOAL IS TO PROVIDE EXCELLENT MEDICAL CARE! WE HOPE THAT WE HAVE MET YOUR EXPECTATIONS DURING YOUR EMERGENCY DEPARTMENT VISIT AND THAT YOU FEEL YOU HAVE RECEIVED EXCELLENT CARE! Prescriptions: Metformin HCl [Glucophage 500 mg Tablet] 500 mg PO BID #60 tablet Lisinopril [Zestril] 40 mg PO DAILY #30 tablet Referrals: [facility] [Provider Group] - Follow up as needed
--- NOTE | 2019-12-30 19:43 | EKG REPORT ---
SEVERITY:- ABNORMAL ECG - SINUS RHYTHM ABNORMAL T, CONSIDER ISCHEMIA, LATERAL LEADS BORDERLINE PROLONGED QT INTERVAL : Confirmed by: Gibson Fletcher MD 30-Dec-2019 19:42:36
[2019-12-30 20:21] LABS: APPEARANCE,URINE CLEAR; BILIRUBIN,URINE NEGATIVE (NEGATIVE); COLOR,URINE YELLOW; GLUCOSE, URINE NEGATIVE (NEGATIVE); KETONES,URINE NEGATIVE (NEGATIVE); LEUKOCYTE ESTERASE,URINE NEGATIVE (NEGATIVE); NITRITE,URINE NEGATIVE (NEGATIVE); PROTEIN,URINE NEGATIVE (NEGATIVE); URINE SPECIFIC GRAVITY 1.015; UROBILINOGEN,URINE NEGATIVE mg/dL (<2.0)
[2019-12-30] MEDS ORDERED: LISINOPRIL 10 MG TABLET PO ONE (20:51)
[2019-12-30] MEDS ORDERED: METOPROLOL TARTRATE 25 MG TABLET PO ONE (20:56)
[2019-12-30 21:25] VITALS: BP 204/111
== END 2019-12-30 21:39 | disposition home or self-care (01) ==
LOC: ER 17:36
DX: I10 Essential (primary) hypertension (principal); E11.9 Type 2 diabetes mellitus without complications; R21 Rash and other nonspecific skin eruption; Z91.14 Patient's other noncompliance with medication regimen; Z87.891 Personal history of nicotine dependence
CPT/HCPCS: 93005; 99284; 96374; 36415; 82962; 83735; 84100; 85025; 80053; 81001; 84484; 93010; J3490

== ENCOUNTER 2020-01-03 09:50 | Observation (INO) | payer SELFPAY ==
[2020-01-03 10:18] LABS: ABSOLUTE BASOPHILS # (AUTO) 0.1 10^3/uL (0.0-0.2); ABSOLUTE EOSINOPHILS # (AUTO) 0.2 10^3/uL (0.0-0.6); ABSOLUTE LYMPHOCYTES (AUTO) 3.3 10^3/uL (0.5-4.7); ABSOLUTE MONOCYTES (AUTO) 0.8 10^3/uL (0.1-1.4); ABSOLUTE NEUT (AUTO) 5.3 10^3/uL (1.7-8.2); BASOPHILS % (AUTO) 1.3 % (0-2); EOSINOPHILS % (AUTO) 1.6 % (0-6); HEMATOCRIT 40.2 % (37.9-51.0); HEMOGLOBIN 14.1 g/dL (13.5-17.0); LYMPHOCYTES % (AUTO) 33.7 % (13-45); MEAN CORPUSCULAR HEMOGLOBIN 28.4 pg (27.0-33.4); MEAN CORPUSCULAR VOLUME 81 fl (80-97); MONOCYTES % (AUTO) 8.3 % (3-13); PLATELET COUNT 223 10^3/uL (150-450); RED BLOOD COUNT 4.96 10^6/uL (4.35-5.55); SEGMENTED NEUTROPHILS % (AUTO) 55.1 % (42-78); TOTAL CELLS COUNTED % (AUTO) 100 %; WHITE BLOOD COUNT 9.7 10^3/uL (4.0-10.5)
[2020-01-03] MEDS ORDERED: DILTIAZEM HCL INJ 25 MG/5 ML VIAL IV ONE (10:26)
[2020-01-03] MEDS ORDERED: DILTIAZEM HCL/D5W 125 MG/125 ML RTUINJ IV PRN (10:27)
--- NOTE | 2020-01-03 10:51 | RADIOLOGY REPORT (SQ) ---
EXAM DESCRIPTION: CHEST SINGLE VIEW IMAGES COMPLETED DATE/TIME: 01/03/2020 10:15 am REASON FOR STUDY: chest pain COMPARISON: 02/23/2016 EXAM PARAMETERS: NUMBER OF VIEWS: One view. TECHNIQUE: Single frontal radiographic view of the chest acquired. RADIATION DOSE: NA LIMITATIONS: None. FINDINGS: LUNGS AND PLEURA: No opacities, masses or pneumothorax. No pleural effusion. MEDIASTINUM AND HILAR STRUCTURES: No masses. Contour normal. HEART AND VASCULAR STRUCTURES: Heart normal in size. Normal vasculature. BONES: No acute findings. HARDWARE: None in the chest. OTHER: No other significant finding. IMPRESSION: NO ACUTE RADIOGRAPHIC FINDING IN THE CHEST. TECHNICAL DOCUMENTATION: JOB ID: [id number] 2010 [employer]- All Rights Reserved Reading location - IP/workstation name: [email or web address]
[2020-01-03 10:52] LABS: INTERNATIONAL RATION (INR) 0.95; PROTHROMBIN TIME 12.9 SEC (11.4-15.4)
[2020-01-03 10:53] LABS: PARTIAL THROMBOPLASTIN TIME 30.8 SEC (23.5-35.8)
[2020-01-03 10:55] LABS: CREATINE KINASE MB 1.94 ng/mL (<4.55); TROPONIN I 0.015 ng/mL
[2020-01-03 10:56] LABS: D-DIMER 0.69 ug/mL (0.00-0.50)
[2020-01-03 10:59] LABS: APPEARANCE,URINE CLEAR; BILIRUBIN,URINE NEGATIVE (NEGATIVE); COLOR,URINE STRAW; GLUCOSE, URINE 50 mg/dL (NEGATIVE); KETONES,URINE TRACE mg/dL (NEGATIVE); LEUKOCYTE ESTERASE,URINE NEGATIVE (NEGATIVE); NITRITE,URINE NEGATIVE (NEGATIVE); PROTEIN,URINE 30 mg/dL (NEGATIVE); UROBILINOGEN,URINE NEGATIVE mg/dL (<2.0)
[2020-01-03 11:00] LABS: ALBUMIN 4.1 g/dL (3.5-5.0); ALKALINE PHOSPHATASE 123 U/L (38-126); ANION GAP 10 (5-19); ASPARTATE AMINO TRANSFERASE 38 U/L (17-59); BILIRUBIN,TOTAL 0.7 mg/dL (0.2-1.3); BLOOD UREA NITROGEN 19 mg/dL (7-20); CALCIUM 9.1 mg/dL (8.4-10.2); CARBON DIOXIDE 27 mmol/L (22-30); CHLORIDE 101 mmol/L (98-107); CREATINE KINASE 97 U/L (55-170); GLUCOSE 210 mg/dL (75-110); POTASSIUM 3.8 mmol/L (3.6-5.0); TOTAL PROTEIN 7.2 g/dL (6.3-8.2)
[2020-01-03 11:23] LABS: URINE AMPHETAMINES SCREEN NEGATIVE; URINE BARBITURATES SCREEN NEGATIVE; URINE BENZODIAZEPINES SCREEN NEGATIVE; URINE COCAINE SCREEN NEGATIVE; URINE MARIJUANA (THC) SCREEN NEGATIVE; URINE METHADONE SCREEN NEGATIVE; URINE PHENCYCLIDINE SCREEN NEGATIVE
[2020-01-03] MEDS ORDERED: DILTIAZEM HCL 60 MG TABLET PO ONE (11:54)
--- NOTE | 2020-01-03 13:11 | RADIOLOGY REPORT (SQ) ---
EXAM DESCRIPTION: CTA CHEST IMAGES COMPLETED DATE/TIME: 01/03/2020 12:37 pm REASON FOR STUDY: afib/elevated d dimer COMPARISON: None. TECHNIQUE: CT scan of the chest performed using helical scanning technique with dynamic intravenous contrast injection. Images reviewed with lung, soft tissue and bone windows. Reconstructed coronal and sagittal MPR images reviewed. Additional 3 dimensional post-processing performed to develop Maximal Intensity Projection images (MD P). All images stored on PACS. All CT scanners at this facility use dose modulation, iterative reconstruction, and/or weight based d osing when appropriate to reduce radiation dose to as low as reasonably achievable (ALARA). [facility]: Dose Right [facility]: CareDose [facility]: Dose Right [facility]: Teradose 4D [facility]: Keep Your Pharmacy Open CONTRAST TYPE AND DOSE: contrast/concentration: Isovue 350.00 mmol/ml; Total Contrast Delivered: 75. 0 ml; Total Saline Delivered: 66.8 ml 75 cc Omnipaque 350- low osmolar. Contrast bolus adequate for pulmonary arteries and aorta. RENAL FUNCTION: None required. The patient is less than 50 years old. RADIATION DOSE: CT Rad equipment meets quality standard of care and radiation dose reduction techniq ues were employed. CTDIvol: 9.9 - 20.9 mGy. DLP: 822 mGy-cm. . LIMITATIONS: None. FINDINGS: LUNGS AND PLEURA: No masses, infiltrates, or pneumothorax. No pleural effusions or pleura l calcifications. AORTA AND GREAT VESSELS: No aneurysm. Contrast bolus not optimized for the aorta. HEART: No pericardial effusion. No significant coronary artery calcifications. PULMONARY ARTERIES: No emboli visualized in the main pulmonary arteries or the segmental branches. HILAR AND MEDIASTINAL STRUCTURES: No identified masses or abnormal nodes. HARDWARE: None in the chest. UPPER ABDOMEN: No significant findings. Limited exam. THYROID AND OTHER SOFT TISSUES: No masses. No adenopathy. BONES: No acute or significant finding. 3D MIPS: Confirm above findings. OTHER: No other significant finding. IMPRESSION: NORMAL CTA OF THE CHEST. NO PULMONARY EMBOLI. COMMENT: Quality ID # [id number]: Final reports with documentation of one or more dose reduction techniques (e.g., Automated exposure control, adjustment of the mA and/or kV according to patient size, use of iterative reconstruction technique) TECHNICAL DOCUMENTATION: JOB ID: [id number] 2010 [employer]- All Rights Reserved Reading location - IP/workstation name: [email or web address]
--- NOTE | 2020-01-03 14:36 | ER Document Report ---
Entered by ANITRA YOON SCRIBE 01/03/20 1024 Acting as scribe for:ELIUD EVANS MD ED Cardiac - General Chief Complaint: Chest Pain Stated Complaint: HEART RATE ISSUES Information source: Patient Notes: This 44 year old male patient with a history of HTN, CVA in 2018, and type 2 diabetes mellitus presents to the ED today via [employer] for evaluation after standing up from bed and feeling like his heart was racing around 0830 this morning. Patient is a [employer] employee and states that he had a coworker check his vitals at work which were noted to be a heart rate between 160-170 bpm and blood pressure of 207/147. He denies history of A fib. Denies any chest pain, shortness of breath, nausea, vomiting, or diarrhea. He mentions that he is supposed to be taking anticoagulants due to his CVA, but he has not been. Patient was seen here on 12/29 for a rash on his hands and during the course of his visit, he was noted to have an elevated BGL and blood pressure. He was discharged home with prescriptions for Metformin and Lisinopril. TRAVEL OUTSIDE OF THE [place] IN LAST 30 DAYS: No - Related Data Allergies/Adverse Reactions: No Known Allergies Allergy (Verified 11/20/17 07:15) Home Medications: Lisinopril, Metformin Past Medical History - General Information source: Patient, [facility] Records - Social History Smoking Status: Unknown if Ever Smoked Smoking Education Provided: No Family History: Reviewed & Not Pertinent - Past Medical History Cardiac Medical History: Reports: Hx Hypercholesterolemia, Hx Hypertension Pulmonary Medical History: Reports: Hx Bronchitis Neurological Medical History: Reports: Hx Cerebrovascular Accident Endocrine Medical History: Reports: Hx Diabetes Mellitus Type 2 Past Surgical History: Reports: Hx Cholecystectomy, Hx Neurologic Surgery - Elevation of a depressed skull fracture at age 67 years old. - Immunizations Hx Diphtheria, Pertussis, Tetanus Vaccination: Yes Review of Systems - Review of Systems Constitutional: No symptoms reported EENT: No symptoms reported Cardiovascular: See HPI, Heart racing. denies: Chest pain Respiratory: See HPI. denies: Short of breath Gastrointestinal: See HPI. denies: Diarrhea, Nausea, Vomiting Genitourinary: No symptoms reported Male Genitourinary: No symptoms reported Musculoskeletal: No symptoms reported Skin: No symptoms reported Hematologic/Lymphatic: No symptoms reported Neurological/Psychological: No symptoms reported -: Yes All other systems reviewed and negative Physical Exam - Vital signs Vitals: Resp Pulse Ox 15 96 01/03/20 09:53 01/03/20 09:53 - General General appearance: Alert In distress: None - HEENT Head: Normocephalic, Atraumatic Eyes: Normal Pupils: PERRL - Respiratory Respiratory status: No respiratory distress Chest status: Nontender Breath sounds: Normal Chest palpation: Normal - Cardiovascular Rhythm: Irregularly irregular, Tachycardia Heart sounds: Normal auscultation Murmur: No Friction rub: No Gallop: None auscultated - Abdominal Inspection: Normal Distension: No distension Bowel sounds: Normal Tenderness: Nontender - Abdomen soft Organomegaly: No organomegaly - Back Back: Normal, Nontender - Extremities General upper extremity: Normal inspection General lower extremity: Normal inspection. No: Edema - Neurological Neuro grossly intact: Yes Orientation: AAOx4 Sebastian Coma Scale Eye Opening: Spontaneous Sebastian Coma Scale Verbal: Oriented [place] Coma Scale Motor: Obeys Commands Sebastian Coma Scale Total: 15 - Psychological Associated symptoms: Normal affect, Normal mood - Skin Skin Temperature: Warm Skin Moisture: Dry Skin Color: Normal Course - Re-evaluation Re-evalutation: 01/03/20 16:37 Patient's heart rate rhythm and rate improved. Patient still in A. fib however heart rate less than 100. Patient's blood pressure also improved along with heart rhythm, with IV bolus diltiazem and a diltiazem drip. Patient was then given p.o. diltiazem and weaned off the IV diltiazem drip and remained with a A. fib but ventricular rate less than 100. 01/04/20 06:33 - Vital Signs Vital signs: Temp Pulse Resp BP Pulse Ox 97.5 F 61 16 183/61 H 98 01/03/20 23:57 01/04/20 02:00 01/03/20 23:57 01/03/20 23:57 01/03/20 23:57 01/03/20 16:37 See most recent vital signs in chart. Patient's heart rate was around 66 with an improvement in blood pressure. - Laboratory Result Diagrams: 01/03/20 10:00 01/03/20 10:00 Laboratory results interpreted by me: 01/03/20 01/03/20 01/03/20 10:00 10:00 10:00 D-Dimer 0.69 H Glucose 210 H NT-Pro-B Natriuret Pep 418 H Urine Protein Urine Glucose (UA) Urine Ketones 01/03/20 10:20 D-Dimer Glucose NT-Pro-B Natriuret Pep Urine Protein 30 H Urine Glucose (UA) 50 H Urine Ketones TRACE H Laboratory results BNP 418, blood sugar 210 and a D-dimer of 0.67. - Diagnostic Test Radiology reviewed: Image reviewed, Reports reviewed Radiology results interpreted by me: 01/03/20 14:37 Chest X-Ray 01/03/20 09:54 IMPRESSION: NO ACUTE RADIOGRAPHIC FINDING IN THE CHEST. Chest/Abdomen CTA 01/03/20 11:56 IMPRESSION: NORMAL CTA OF THE CHEST. NO PULMONARY EMBOLI. 01/04/20 06:34 Chest x-ray shows no acute process. CTA of chest showed no evidence of pulmonary emboli. - EKG Interpretation by Me Additional EKG results interpreted by me: 01/03/20 16:39 Twelve-lead EKG today at 0957 shows atrial fibrillation with a rapid ventricular rate of 145 prolonged QT interval MD interval indeterminate due to A. fib. QRS interval within normal range. Nonspecific ST-T wave changes. No evidence for STEMI 01/03/20 16:41 - Consults Dr. Do, Hospitalist Time consulted: 14:27 Critical Care Note - Critical Care Note Total time excluding time spent on procedures (mins): 40 - Management of tach arrhythmia with atrial fibrillation with rapid ventricular response requiring IV bolus antiarrhythmic medications and drip. Patient's blood pressure was also managed because of systemic systolic and diastolic hypertension. Discussed case with hospitalist staff for admission. Discharge - Discharge Clinical Impression: Atrial fibrillation with RVR, Accelerated hypertension Condition: Fair Disposition: ADMITTED OBSERVATION Admitting Provider: Hi (Hospitalist) Unit Admitted: Telemetry I personally performed the services described in the documentation, reviewed and edited the documentation which was dictated to the scribe in my presence, and it accurately records my words and actions.
--- NOTE | 2020-01-03 14:49 | EKG REPORT ---
SEVERITY:- ABNORMAL ECG - ATRIAL FIBRILLATION PROLONGED QT INTERVAL : Confirmed by: Gibson Fletcher MD 03-Jan-2020 14:48:19
--- NOTE | 2020-01-03 14:49 | EKG REPORT ---
SEVERITY:- ABNORMAL ECG - ATRIAL FIBRILLATION ABNORMAL T, CONSIDER ISCHEMIA, LATERAL LEADS : Confirmed by: Gibson Fletcher MD 03-Jan-2020 14:48:12
[2020-01-03] MEDS ORDERED: ONDANSETRON 4 MG TAB.RAPDIS PO PRN (18:39)
[2020-01-03] MEDS ORDERED: ACETAMINOPHEN 325 MG TABLET PO PRN (18:39)
[2020-01-03] MEDS ORDERED: ONDANSETRON HCL INJ/PF 4 MG/2 ML SDV IV PRN (18:39)
--- NOTE | 2020-01-03 19:00 | PDOC H&P ---
History of Present Illness Admission Date/PCP: 01/03/20 14:55 History of Present Illness: CARROLL DEAL is a 44 year old male with past medical history significant for previous CVA, HTN, HLD, T2DM, PAULA untreated who presents to the ED after he was having palpitations today at work and they performed a twelve-lead EKG which showed A. fib with RVR. Patient was sent to ED and this was confirmed on telemetry there. Patient was started on a diltiazem drip and given oral diltiazem soon after he converted to normal sinus rhythm. Patient's blood pressure is notably uncontrolled his blood sugars in the low 200s as well. Patient has lost his insurance and states he has been unable to afford some of his medications. He states he has some very minimal residual weakness on the right side from his prior CVA but otherwise has no longstanding deficits that he knows of. Patient is admitted to observation for telemetry and started on oral diltiazem. We will get an echocardiogram to rule out structural abnormalities causing A. fib. Past Medical History Cardiac Medical History: Reports: Atrial Fibrillation, Hyperlipidema, Hypertension Pulmonary Medical History: Reports: Bronchitis Neurological Medical History: Reports: Ischemic CVA Endocrine Medical History: Reports: Diabetes Mellitus Type 2 Past Surgical History Past Surgical History: Reports: Cholecystectomy Social History Information Source: Patient, Emergency Med Personnel Smoking Status: Former Smoker Frequency of Alcohol Use: Rare Hx Recreational Drug Use: No Hx Prescription Drug Abuse: No - Advance Directive Resuscitation Status: Full Code Surrogate healthcare decision maker:: Admitting diagnosis: Acute A. fib with RVR All aspects of code status discussed with patient/POA including cardioversion, chest compressions, and intubation and the patient/POA indicated they wish to be full code MPOA is designated as: , Noni Davidson Time spent: Greater than 16 minutes Family History Family History: Reviewed & Not Pertinent, CAD, Malignancy Parental Family History Reviewed: Yes Children Family History Reviewed: Yes Sibling(s) Family History Reviewed.: Yes Medication/Allergy Home Medications: Lisinopril [Zestril] 40 mg PO DAILY #30 tablet 12/30/19 Metformin HCl [Glucophage 500 mg Tablet] 500 mg PO BID #60 tablet 12/30/19 Allergies/Adverse Reactions: No Known Allergies Allergy (Verified 11/20/17 07:15) Review of Systems All systems: reviewed and no additional remarkable complaints except as stated - Per HPI otherwise negative Physical Exam Vital Signs: Temp Pulse Resp BP Pulse Ox 98.3 F 63 18 165/79 H 92 01/03/20 18:46 01/03/20 18:46 01/03/20 18:46 01/03/20 18:46 01/03/20 18:46 Intake & Output 01/02/20 01/03/20 01/04/20 06:59 06:59 06:59 Intake Total 54 Balance 54 Weight 97 kg Exam: General appearance: PRESENT: no acute distress, well-developed, well-nourished, states his palpitations are gone for now Head exam: PRESENT: atraumatic, normocephalic Eye exam: PRESENT: conjunctiva pink. ABSENT: scleral icterus Mouth exam: PRESENT: moist Respiratory exam: PRESENT: clear to auscultation blanca. ABSENT: rales, rhonchi, wheezes Cardiovascular exam: PRESENT: RRR. ABSENT: diastolic murmur, rubs, systolic murmur GI/Abdominal exam: PRESENT: normal bowel sounds, soft. ABSENT: distended, guarding, mass, organolmegaly, rebound, tenderness Neurological exam: PRESENT: alert, awake, oriented to person, oriented to place, oriented to time, oriented to situation Psychiatric exam: PRESENT: appropriate affect, normal mood Skin exam: PRESENT: dry, intact, warm Results Laboratory Results: 01/03/20 10:00 01/03/20 10:00 01/03/20 01/03/20 01/03/20 10:00 10:00 10:00 WBC 9.7 RBC 4.96 Hgb 14.1 Hct 40.2 MCV 81 MCH 28.4 MCHC 35.0 RDW 13.0 Plt Count 223 Seg Neutrophils % 55.1 Sodium 138.2 Potassium 3.8 Chloride 101 Carbon Dioxide 27 Anion Gap 10 BUN 19 Creatinine 0.87 Est GFR ( Amer) > 60 Glucose 210 H Calcium 9.1 Magnesium 1.9 Total Bilirubin 0.7 AST 38 Alkaline Phosphatase 123 Total Protein 7.2 Albumin 4.1 Urine Color Urine Appearance Urine pH Ur Specific Douglass Urine Protein Urine Glucose (UA) Urine Ketones Urine Blood Urine Nitrite Ur Leukocyte Esterase Urine RBC (Auto) 01/03/20 10:20 WBC RBC Hgb Hct MCV MCH MCHC RDW Plt Count Seg Neutrophils % Sodium Potassium Chloride Carbon Dioxide Anion Gap BUN Creatinine Est GFR ( Amer) Glucose Calcium Magnesium Total Bilirubin AST Alkaline Phosphatase Total Protein Albumin Urine Color STRAW Urine Appearance CLEAR Urine pH 7.0 Ur Specific Douglass 1.010 Urine Protein 30 H Urine Glucose (UA) 50 H Urine Ketones TRACE H Urine Blood NEGATIVE Urine Nitrite NEGATIVE Ur Leukocyte Esterase NEGATIVE Urine RBC (Auto) 1 01/03/20 01/03/20 01/03/20 10:00 10:00 10:00 Creatine Kinase 97 CK-MB (CK-2) 1.94 Troponin I 0.015 NT-Pro-B Natriuret Pep 418 H 01/03/20 12:54 Creatine Kinase CK-MB (CK-2) Troponin I < 0.012 NT-Pro-B Natriuret Pep Impressions: Chest X-Ray 01/03/20 09:54 IMPRESSION: NO ACUTE RADIOGRAPHIC FINDING IN THE CHEST. Chest/Abdomen CTA 01/03/20 11:56 IMPRESSION: NORMAL CTA OF THE CHEST. NO PULMONARY EMBOLI. Assessment and Plan - Diagnosis (1) Atrial fibrillation with RVR Is this a current diagnosis for this admission?: Yes Plan: Seen on EKG and telemetry, converted to NSR later Started on IV diltiazem and given oral diltiazem in ED, transitioned off of IV diltiazem, converted to NSR Started on 120 mg daily of extended release diltiazem daily EKG reviewed Echocardiogram Likely precipitated by untreated PAULA (2) Poorly-controlled hypertension Is this a current diagnosis for this admission?: Yes Plan: Only takes lisinopril at home, questionable if he takes this consistently Started on lisinopril, chlorthalidone, diltiazem (3) Type II diabetes mellitus Qualifiers: Diabetes mellitus residential insulin use: without residential use Diabetes mellitus complication status: with circulatory complication Diabetes mellitus complication detail: with other circulatory complications Qualified Code(s): E11.59 - Type 2 diabetes mellitus with other circulatory complications Is this a current diagnosis for this admission?: Yes Plan: Uncontrolled Restart home Metformin, and glipizide Per patient, he has no insurance and cannot afford Januvia that his PCP had prescribed Sliding scale insulin, Accu-Cheks A1c (4) History of CVA (cerebrovascular accident) Is this a current diagnosis for this admission?: Yes Plan: Aspirin, statin - Time Time Spent with patient: 35 or more minutes Medications reviewed and adjusted accordingly: Yes Anticipated Discharge Disposition: Home, Self Care Anticipated Discharge Timeframe: within 24 hours
[2020-01-03] MEDS ORDERED: CHLORTHALIDONE 25 MG TABLET PO SCH (20:00)
[2020-01-03] MEDS: ATORVASTATIN CALCIUM 40 MG TABLET PO SCH (21:14)
[2020-01-03] MEDS: INSULIN LISPRO 100 UNIT/ML 3 ML VIAL SUBCUT SCH (21:15)
[2020-01-04 06:29] LABS: HEMATOCRIT 40.8 % (37.9-51.0); HEMOGLOBIN 14.5 g/dL (13.5-17.0); MEAN CORPUSCULAR HEMOGLOBIN 28.8 pg (27.0-33.4); MEAN CORPUSCULAR HGB CONC 35.7 g/dL (32.0-36.0); MEAN CORPUSCULAR VOLUME 81 fl (80-97); PLATELET COUNT 228 10^3/uL (150-450); RED BLOOD COUNT 5.05 10^6/uL (4.35-5.55); RED CELL DISTRIBUTION WIDTH 13.2 % (11.5-14.0); WHITE BLOOD COUNT 8.6 10^3/uL (4.0-10.5)
[2020-01-04 06:55] LABS: ANION GAP 11 (5-19); BLOOD UREA NITROGEN 23 mg/dL (7-20); CALCIUM 9.3 mg/dL (8.4-10.2); CARBON DIOXIDE 25 mmol/L (22-30); CHLORIDE 103 mmol/L (98-107); CHOLESTEROL 188.58 mg/dL (0-200); GLUCOSE 210 mg/dL (75-110); PHOSPHORUS 5.4 mg/dL (2.5-4.5); POTASSIUM 3.7 mmol/L (3.6-5.0); TRIGLYCERIDES 181 mg/dL (<150)
[2020-01-04 07:03] LABS: FREE T4 (FREE THYROXINE) 1.06 ng/dL (0.78-2.19)
[2020-01-04 07:06] LABS: DIRECT LDL 155 mg/dL (<100)
[2020-01-04 07:07] LABS: VLDL CHOLESTEROL 36.2 mg/dL (10-31)
[2020-01-04 07:17] LABS: THYROID STIMULATING HORMONE 1.71 uIU/mL (0.47-4.68)
[2020-01-04] MEDS: GLIPIZIDE 5 MG TABLET PO SCH ×2 (07:49→16:54)
[2020-01-04] MEDS: INSULIN LISPRO 100 UNIT/ML 3 ML VIAL SUBCUT SCH ×4 (07:50→21:14)
[2020-01-04] MEDS ORDERED: INFLUENZA QUAD (6MOS+) 2020-21 VAC 0.5 ML SYR IM ONE (08:00)
[2020-01-04] MEDS ORDERED: LISINOPRIL 10 MG TABLET PO SCH ×3 (10:00→11:00)
[2020-01-04] MEDS ORDERED: DILTIAZEM HCL 120 MG CAP.SR.24H PO SCH (10:00)
[2020-01-04] MEDS ORDERED: (PENDING PHARMACY ID) (Lisinopril [Zestril] 40 MG) PO SCH (10:00)
[2020-01-04] MEDS ORDERED: ENOXAPARIN SODIUM INJ 40 MG/0.4 ML DISP.SYRIN SUBCUT SCH (10:00)
[2020-01-04] MEDS ORDERED: METOPROLOL SUCCINATE 25 MG TAB.SR.24H PO SCH (10:00)
[2020-01-04] MEDS ORDERED: CHLORTHALIDONE 25 MG TABLET PO SCH (11:00)
[2020-01-04] MEDS: DOCUSATE SODIUM 100 MG CAPSULE PO SCH (11:16)
[2020-01-04] MEDS: ASPIRIN 81 MG TABLET, CHEWABLE PO SCH (11:16)
[2020-01-04] MEDS: METFORMIN HCL 500 MG TABLET PO SCH ×2 (11:16→16:53)
[2020-01-04] MEDS: METOPROLOL SUCCINATE 25 MG TAB.SR.24H PO SCH (11:21)
[2020-01-04] MEDS: LISINOPRIL 10 MG TABLET PO SCH (11:21)
[2020-01-04] MEDS: CHLORTHALIDONE 25 MG TABLET PO SCH (11:22)
--- NOTE | 2020-01-04 13:23 | XCELERA REPORT ---
[address] [address] Transthoracic Echocardiogram Report Name: CARROLL DEAL Age: 44 yrs Gender: Male : 1975 Patient Status: Inpatient Patient Location: [address] [place], [place] [address] Study Date: 01/04/2020 11:02 AM Height: 71 in Weight: 215 lb BSA: 2.2 m2 Procedure: A complete two-dimensional transthoracic echocardiogram was performed (2D, M-mode, spectral and color flow Doppler). The study was technically good with many images being of high quality. Reason For Study: chf, a-fib Ordering Physician: TROY CENTENO Performed By: NF Interpretation Summary The left ventricle is normal in size. Left ventricular systolic function is normal. The Ejection Fraction estimate is 55-60%. Doppler measurements suggest normal left ventricular diastolic function. The left ventricular wall motion is normal. Trace MR, trace to mild TR. No prior studies for comparison. MMode/2D Measurements & Calculations RVDd: 3.4 cm LVIDd: 4.6 cm FS: 33.6 % Ao root diam: IVSd: 1.1 cm LVIDs: 3.1 cm EDV(Teich): 2.9 cm 98.1 ml Ao root area: LVPWd: 1.3 cm ESV(Teich): 6.5 cm2 36.9 ml LA dimension: EF(Teich): 62.4 % 3.8 cm LVLd ap4: 8.2 cm SV(MOD-sp4): EDV(MOD-sp4): 100.0 ml 141.0 ml LVLs ap4: 6.0 cm ESV(MOD-sp4): 41.0 ml EF(MOD-sp4): 70.9 % Doppler Measurements & Calculations MV E max anant: MV P1/2t max anant: Ao V2 max: LV V1 max P.1 cm/sec 125.7 cm/sec 132.5 cm/sec 4.7 mmHg MV A max anant: MV P1/2t: 74.9 msec Ao max P.0 mmHgLV V1 max: 41.0 cm/sec MVA(P1/2t): 2.9 cm2 108.6 cm/sec MV E/A: 2.6 MV dec slope: 491.7 cm/sec2 MV dec time: 0.20 sec PA V2 max: TR max anant: MV P1/2t-pr_phl: 92.8 cm/sec 206.3 cm/sec 74.9 msec PA max P.4 mmHgTR max P.0 mmHg Left Ventricle The left ventricle is normal in size. Left ventricular systolic function is normal. The Ejection Fraction estimate is 55-60%. Doppler measurements suggest normal left ventricular diastolic function. The left ventricular wall motion is normal. Right Ventricle The right ventricle is normal in size, thickness and function. The right ventricular systolic function is normal. Atria The right atrium is normal. The left atrial size is normal. The interatrial septum is difficult to see, but appears to be grossly normal. Mitral Valve The mitral valve is grossly normal. There is a trace amount of mitral regurgitation. Aortic Valve The aortic valve is normal in structure and functions normally. There is no aortic valve stenosis. No aortic regurgitation is present. Tricuspid Valve The tricuspid is normal in structure and function. There is a trace to mild amount of tricuspid regurgitation. Pulmonic Valve The pulmonic valve is not well visualized. Great Vessels The inferior vena cava appeared normal. Effusions There is no pericardial effusion. There is no pleural effusion. : TROY CENTENO Antonio
[2020-01-04] MEDS ORDERED: NIFEDIPINE 30 MG TAB.ER.24 PO SCH (15:00)
[2020-01-04] MEDS: AMLODIPINE BESYLATE 10 MG TABLET PO SCH (16:54)
[2020-01-04] MEDS ORDERED: HYDRALAZINE HCL 25 MG TABLET PO ONE (17:00)
--- NOTE | 2020-01-04 17:56 | PDOC PROGRESS REPORT ---
Subjective Subjective:: CARROLL DEAL is a 44 year old male with past medical history significant for previous CVA, HTN, HLD, T2DM, PAULA untreated who presents to the ED after he was having palpitations today at work and they performed a twelve-lead EKG which showed A. fib with RVR. Patient was sent to ED and this was confirmed on telemetry there. Patient was started on a diltiazem drip and given oral diltiazem soon after he converted to normal sinus rhythm. Patient's blood pressure is notably uncontrolled his blood sugars in the low 200s as well. Patient has lost his insurance and states he has been unable to afford some of his medications. He states he has some very minimal residual weakness on the right side from his prior CVA but otherwise has no longstanding deficits that he knows of. Patient is admitted to observation for telemetry and started on oral diltiazem. We will get an echocardiogram to rule out structural abnormalities causing A. fib. 01/04/2020 Nursing have tried diligently to reassess the patient's blood pressure frequently throughout the day and make multiple adjustments in his oral medications. He appears to have extremely refractory hypertension and I have him on 4 medications currently at rather high doses. He is maxed on chlorthalidone and amlodipine. We cannot increase his metoprolol any further due to heart rate in the 60s and 70s. I am gradually increasing his oral hydralazine at this time. His blood pressure has finally dropped into the 160 systolic after multiple increases in meds. Patient has agreed to stay in the hospital for 1 more night I believe this will be crucial to maintaining adequate blood pressure control in the future. He must establish care with a PCP to have his blood pressure and blood sugar checked frequently and have his medications adjusted regularly especially in the near future after his discharge. Reason For Visit: AFIB WITH RVR, HTN, T2DM Physical Exam Vital Signs: Temp Pulse Resp BP Pulse Ox 98.0 F 76 20 163/99 H 98 01/04/20 17:46 01/04/20 17:46 01/04/20 17:46 01/04/20 17:46 01/04/20 17:46 Intake & Output 01/03/20 01/04/20 01/05/20 06:59 06:59 06:59 Intake Total 454 720 Balance 454 720 Weight 97.8 kg Exam: General appearance: PRESENT: no acute distress, well-developed, well-nourished, states he feels fairly well today Head exam: PRESENT: atraumatic, normocephalic Eye exam: PRESENT: conjunctiva pink. ABSENT: scleral icterus Mouth exam: PRESENT: moist Respiratory exam: PRESENT: clear to auscultation blanca. ABSENT: rales, rhonchi, wheezes Cardiovascular exam: PRESENT: RRR. ABSENT: diastolic murmur, rubs, systolic murmur GI/Abdominal exam: PRESENT: normal bowel sounds, soft. ABSENT: distended, guarding, mass, organolmegaly, rebound, tenderness Neurological exam: PRESENT: alert, awake, oriented to person, oriented to place, oriented to time, oriented to situation Psychiatric exam: PRESENT: appropriate affect, normal mood Skin exam: PRESENT: dry, intact, warm Results Laboratory Results: 01/04/20 05:44 01/04/20 05:44 01/04/20 01/04/20 01/04/20 05:44 05:44 05:44 WBC 8.6 RBC 5.05 Hgb 14.5 Hct 40.8 MCV 81 MCH 28.8 MCHC 35.7 RDW 13.2 Plt Count 228 Sodium 138.5 Potassium 3.7 Chloride 103 Carbon Dioxide 25 Anion Gap 11 BUN 23 H Creatinine 0.87 Est GFR ( Amer) > 60 Glucose 210 H Calcium 9.3 Phosphorus 5.4 H Magnesium 2.0 Triglycerides 181 H Cholesterol 188.58 LDL Cholesterol Direct 155 H VLDL Cholesterol 36.2 H HDL Cholesterol 24 L TSH 1.71 Free T4 1.06 01/03/20 01/03/20 01/03/20 10:00 10:00 10:00 Creatine Kinase 97 CK-MB (CK-2) 1.94 Troponin I 0.015 NT-Pro-B Natriuret Pep 418 H 01/03/20 12:54 Creatine Kinase CK-MB (CK-2) Troponin I < 0.012 NT-Pro-B Natriuret Pep Impressions: Chest X-Ray 01/03/20 09:54 IMPRESSION: NO ACUTE RADIOGRAPHIC FINDING IN THE CHEST. Chest/Abdomen CTA 01/03/20 11:56 IMPRESSION: NORMAL CTA OF THE CHEST. NO PULMONARY EMBOLI. Assessment and Plan - Diagnosis (1) Atrial fibrillation with RVR Is this a current diagnosis for this admission?: Yes (2) Poorly-controlled hypertension Is this a current diagnosis for this admission?: Yes (3) Type II diabetes mellitus Qualifiers: Diabetes mellitus alf insulin use: without alf use Diabetes mellitus complication status: with circulatory complication Diabetes mellitus complication detail: with other circulatory complications Qualified Code(s): E11.59 - Type 2 diabetes mellitus with other circulatory complications Is this a current diagnosis for this admission?: Yes (4) History of CVA (cerebrovascular accident) Is this a current diagnosis for this admission?: Yes - Plan Summary Summary: (1) Atrial fibrillation with RVRresolved Is this a current diagnosis for this admission?: Yes Plan: Seen on EKG and telemetry, converted to NSR later Started on IV diltiazem and given oral diltiazem in ED, transitioned off of IV diltiazem, converted to NSR Started on 120 mg daily of extended release diltiazem daily EKG reviewed Echocardiogram Likely precipitated by untreated PAULA Needs outpatient sleep study (2) Poorly-controlled hypertension Is this a current diagnosis for this admission?: Yes Plan: Only takes lisinopril at home, questionable if he takes this consistently Started on lisinopril, chlorthalidone, amlodipine, hydralazine (3) Type II diabetes mellitus Qualifiers: Diabetes mellitus alf insulin use: 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 Diabetes mellitus complication status: with circulatory complication Diabetes mellitus complication detail: with other circulatory complications Qualified Code(s): E11.59 - Type 2 diabetes mellitus with other circulatory complications Is this a current diagnosis for this admission?: Yes Plan: Uncontrolled Restart home Metformin, and glipizide Per patient, he has no insurance and cannot afford Januvia that his PCP had prescribed Sliding scale insulin, Accu-Cheks A1c 8.7 Blood sugar well controlled and patient (4) History of CVA (cerebrovascular accident) Is this a current diagnosis for this admission?: Yes Plan: Aspirin, statin - Time Time Spent with patient: 25-34 minutes Medications reviewed and adjusted accordingly: Yes Anticipated Discharge Disposition: Home, Self Care Anticipated Discharge Timeframe: within 24 hours
[2020-01-04] MEDS: HYDRALAZINE HCL 50 MG TABLET PO SCH (21:12)
[2020-01-04] MEDS: ATORVASTATIN CALCIUM 40 MG TABLET PO SCH (21:12)
[2020-01-04] MEDS ORDERED: HYDRALAZINE HCL 25 MG TABLET PO SCH (22:00)
[2020-01-05] MEDS: HYDRALAZINE HCL 50 MG TABLET PO SCH ×2 (05:08→14:14)
[2020-01-05] MEDS: INSULIN LISPRO 100 UNIT/ML 3 ML VIAL SUBCUT SCH ×2 (07:40→11:47)
[2020-01-05] MEDS: METFORMIN HCL 500 MG TABLET PO SCH (07:59)
[2020-01-05] MEDS: GLIPIZIDE 5 MG TABLET PO SCH (08:00)
[2020-01-05] MEDS: ASPIRIN 81 MG TABLET, CHEWABLE PO SCH (09:57)
[2020-01-05] MEDS: AMLODIPINE BESYLATE 10 MG TABLET PO SCH (09:57)
[2020-01-05] MEDS: CHLORTHALIDONE 25 MG TABLET PO SCH (09:57)
[2020-01-05] MEDS: DOCUSATE SODIUM 100 MG CAPSULE PO SCH (09:57)
[2020-01-05] MEDS: LISINOPRIL 10 MG TABLET PO SCH (09:58)
[2020-01-05] MEDS: METOPROLOL SUCCINATE 25 MG TAB.SR.24H PO SCH (09:58)
[2020-01-05] MEDS ORDERED: CITALOPRAM HYDROBROMIDE 20 MG TABLET PO SCH (10:00)
[2020-01-05] MEDS ORDERED: APIXABAN 5 MG TABLET PO SCH (10:00)
[2020-01-05] MEDS ORDERED: CHLORTHALIDONE 25 MG TABLET PO SCH ×2 (10:00)
[2020-01-05] MEDS ORDERED: METOPROLOL SUCCINATE 25 MG TAB.SR.24H PO SCH (10:00)
[2020-01-05] MEDS ORDERED: LISINOPRIL 10 MG TABLET PO SCH (10:00)
--- NOTE | 2020-01-05 11:30 | RADIOLOGY REPORT (SQ) ---
EXAM DESCRIPTION: DUPLEX ART/ALEXANDRU FLOW COMPLETE IMAGES COMPLETED DATE/TIME: 01/05/2020 9:14 am REASON FOR STUDY: renal artery/vein US: possible CHRISTINE HTN COMPARISON: None. TECHNIQUE: Realtime and static grayscale images acquired. Selected color Doppler, velocities and spe ctral images recorded. LIMITATIONS: None. FINDINGS: RIGHT KIDNEY: RENAL ARTERY VELOCITIES: 130 cm/sec. Segmental artery velocity 90 cm/sec. RENAL VEIN: Color doppler flow present, patent. VELOCITY RATIO: 1.4. Normal waveforms. KIDNEY: 12 cm normal echogenicity. LEFT KIDNEY: RENAL ARTERY VELOCITIES: 160 cm/sec. Segmental artery velocity 110 cm/sec. RENAL VEIN: Color doppler flow present, patent. VELOCITY RATIO: 1.20. Normal waveforms. KIDNEY: 11 cm hours BLADDER: Normal. OTHER: No other significant finding. IMPRESSION: NO DOPPLER EVIDENCE OF HEMODYNAMICALLY SIGNIFICANT RENAL ARTERY STENOSIS. COMMENT: NORMAL RENAL ARTERY/AORTA VELOCITY RATIO IS LESS THAN OR EQUAL TO 3.5. TECHNICAL DOCUMENTATION: JOB ID: [id number] [employer]- All Rights Reserved Reading location - IP/workstation name: [email or web address]
[2020-01-05 12:10] VITALS: BP 142/66
--- NOTE | 2020-01-05 12:41 | PDOC DISCHARGE SUMMARY ---
Impression - Admit/DC Date/PCP Admission Date/Primary Care Provider: 01/03/20 14:55 Discharge Date: 01/05/20 - Discharge Diagnosis (1) Atrial fibrillation with RVR Is this a current diagnosis for this admission?: Yes (2) Poorly-controlled hypertension Is this a current diagnosis for this admission?: Yes (3) Type II diabetes mellitus Is this a current diagnosis for this admission?: Yes (4) History of CVA (cerebrovascular accident) Is this a current diagnosis for this admission?: Yes - Assessment Summary: (1) Atrial fibrillation with RVRresolved Is this a current diagnosis for this admission?: Yes Plan: Seen on EKG and telemetry, converted to NSR later Started on IV diltiazem and given oral diltiazem in ED, transitioned off of IV diltiazem, converted to NSR Started on 120 mg daily of extended release diltiazem daily EKG reviewed Echocardiogram showed normal cardiac function Likely precipitated by untreated PAULA Needs outpatient sleep study [id number] score 4, requires anticoagulation long-term Started on apixaban and given a coupon for 1 month Coumadin is not a good choice as the patient has no ability to check his INR, has no PCP, has no insurance, high risk to have subtherapeutic or supratherapeutic INR (2) Poorly-controlled hypertension-improved Is this a current diagnosis for this admission?: Yes Plan: Only takes lisinopril at home, questionable if he takes this consistently Started on lisinopril, chlorthalidone, amlodipine, hydralazine, metoprolol Aldosterone/renin ratio pending and discharge, will need to get these results from PCP Renal PVL done, no evidence of renal artery stenosis May benefit from referral to a hazardous materials waste technician due to severe hypertension (3) Type II diabetes mellitusimproved Qualifiers: Diabetes mellitus emt intermediate insulin use: without emt intermediate use Diabetes mellitus complication status: with circulatory complication Diabetes mellitus complication detail: with other circulatory complications Qualified Code(s): E11.59 - Type 2 diabetes mellitus with other circulatory complications Is this a current diagnosis for this admission?: Yes Plan: Uncontrolled Restart home Metformin, and glipizide Per patient, he has no insurance and cannot afford Januvia that his PCP had prescribed Sliding scale insulin, Accu-Cheks A1c 8.7 Blood sugar well controlled inpatient (4) History of CVA (cerebrovascular accident) Is this a current diagnosis for this admission?: Yes Plan: Aspirin, statin - Additional Information Resuscitation Status: Full Code Discharge Diet: As Tolerated, Diabetic Discharge Activity: Activity As Tolerated, Balance Activity w/Rest Prescriptions: Hydralazine HCl [Apresoline 50 mg Tablet] 50 mg PO Q8 #90 tablet Hydralazine HCl [Apresoline 50 mg Tablet] 50 mg PO Q8 #9 tablet Aspirin [Aspirin 81 mg Chewable Tablet] 81 mg PO DAILY #30 tab.chew Citalopram Hydrobromide [Celexa 20 mg Tablet] 10 mg PO DAILY #30 tablet Apixaban [Eliquis 5 mg Tablet] 5 mg PO BID #60 tablet Metformin HCl [Glucophage] 1,000 mg PO BID #60 tablet Metformin HCl [Glucophage] 1,000 mg PO BID #4 tablet Glipizide [Glucotrol] 5 mg PO BIDACBS #4 tablet Glipizide [Glucotrol 5 mg Tablet] 5 mg PO BIDACBS #60 tablet Chlorthalidone [Hygroton 25 mg Tablet] 25 mg PO DAILY #30 tablet Chlorthalidone [Hygroton 25 mg Tablet] 25 mg PO DAILY #4 tablet Metoprolol Succinate [[place] Sprinkle] 25 mg PO DAILY #2 cap.spr.24 Atorvastatin Calcium [Lipitor 40 mg Tablet] 40 mg PO QHS #30 tablet Amlodipine Besylate [Norvasc 10 mg Tablet] 10 mg PO DAILY #30 tablet Amlodipine Besylate [Norvasc 10 mg Tablet] 10 mg PO DAILY #2 tablet Metoprolol Succinate [Toprol Xl 25 mg Tab.sr] 25 mg PO DAILY #30 tab.sr.24h Lisinopril [Zestril] 40 mg PO DAILY #2 tablet Lisinopril [Zestril] 40 mg PO DAILY #30 tablet Home Medications: Amlodipine Besylate [Norvasc 10 mg Tablet] 10 mg PO DAILY #2 tablet 01/05/20 Amlodipine Besylate [Norvasc 10 mg Tablet] 10 mg PO DAILY #30 tablet 01/05/20 Apixaban [Eliquis 5 mg Tablet] 5 mg PO BID #60 tablet 01/05/20 Aspirin [Aspirin 81 mg Chewable Tablet] 81 mg PO DAILY #30 tab.chew 01/05/20 Atorvastatin Calcium [Lipitor 40 mg Tablet] 40 mg PO QHS #30 tablet 01/05/20 Chlorthalidone [Hygroton 25 mg Tablet] 25 mg PO DAILY #30 tablet 01/05/20 Chlorthalidone [Hygroton 25 mg Tablet] 25 mg PO DAILY #4 tablet 01/05/20 Citalopram Hydrobromide [Celexa 20 mg Tablet] 10 mg PO DAILY #30 tablet 01/05/20 Glipizide [Glucotrol 5 mg Tablet] 5 mg PO BIDACBS #60 tablet 01/05/20 Glipizide [Glucotrol] 5 mg PO BIDACBS #4 tablet 01/05/20 Hydralazine HCl [Apresoline 50 mg Tablet] 50 mg PO Q8 #9 tablet 01/05/20 Hydralazine HCl [Apresoline 50 mg Tablet] 50 mg PO Q8 #90 tablet 01/05/20 Lisinopril [Zestril] 40 mg PO DAILY #2 tablet 01/05/20 Lisinopril [Zestril] 40 mg PO DAILY #30 tablet 01/05/20 Metformin HCl [Glucophage] 1,000 mg PO BID #4 tablet 01/05/20 Metformin HCl [Glucophage] 1,000 mg PO BID #60 tablet 01/05/20 Metoprolol Succinate [[place] Sprinkle] 25 mg PO DAILY #2 cap.spr.24 01/05/20 Metoprolol Succinate [Toprol Xl 25 mg Tab.sr] 25 mg PO DAILY #30 tab.sr.24h 01/05/20 History of Present Illiness History of Present Illness: CARROLL DEAL is a 44 year old male with past medical history significant for previous CVA, HTN, HLD, T2DM, PAULA untreated who presents to the ED after he was having palpitations today at work and they performed a twelve-lead EKG which showed A. fib with RVR. Patient was sent to ED and this was confirmed on telemetry there. Patient was started on a diltiazem drip and given oral diltiazem soon after he converted to normal sinus rhythm. Patient's blood pressure is notably uncontrolled his blood sugars in the low 200s as well. Patient has lost his insurance and states he has been unable to afford some of his medications. He states he has some very minimal residual weakness on the right side from his prior CVA but otherwise has no longstanding deficits that he knows of. Patient is admitted to observation for telemetry and started on oral diltiazem. We will get an echocardiogram to rule out structural abnormalities causing A. fib. Physical Exam Vital Signs: Temp Pulse Resp BP Pulse Ox 97.9 F 76 16 142/66 H 99 01/05/20 12:00 01/05/20 12:00 01/05/20 12:00 01/05/20 12:00 01/05/20 12:00 Intake & Output 01/04/20 01/05/20 01/06/20 06:59 06:59 06:59 Intake Total 454 1120 380 Balance 454 1120 380 Weight 97.8 kg 97.3 kg Exam: General appearance: PRESENT: no acute distress, well-developed, well-nourished Head exam: PRESENT: atraumatic, normocephalic Eye exam: PRESENT: conjunctiva pink. ABSENT: scleral icterus Mouth exam: PRESENT: moist Respiratory exam: PRESENT: clear to auscultation blanca. ABSENT: rales, rhonchi, wheezes Cardiovascular exam: PRESENT: RRR. ABSENT: diastolic murmur, rubs, systolic mur mur GI/Abdominal exam: PRESENT: normal bowel sounds, soft. ABSENT: distended, guarding, mass, organolmegaly, rebound, tenderness Neurological exam: PRESENT: alert, awake, oriented to person, oriented to place, oriented to time, oriented to situation Psychiatric exam: PRESENT: appropriate affect, normal mood Skin exam: PRESENT: dry, intact, warm Results Laboratory Results: WBC 8.6 10^3/uL (4.0-10.5) 01/04/20 05:44 RBC 5.05 10^6/uL (4.35-5.55) 01/04/20 05:44 Hgb 14.5 g/dL (13.5-17.0) 01/04/20 05:44 Hct 40.8 % (37.9-51.0) 01/04/20 05:44 MCV 81 fl (80-97) 01/04/20 05:44 MCH 28.8 pg (27.0-33.4) 01/04/20 05:44 MCHC 35.7 g/dL (32.0-36.0) 01/04/20 05:44 RDW 13.2 % (11.5-14.0) 01/04/20 05:44 Plt Count 228 10^3/uL (150-450) 01/04/20 05:44 Lymph % (Auto) 33.7 % (13-45) 01/03/20 10:00 [place] % (Auto) 8.3 % (3-13) 01/03/20 10:00 Eos % (Auto) 1.6 % (0-6) 01/03/20 10:00 Baso % (Auto) 1.3 % (0-2) 01/03/20 10:00 Absolute Neuts (auto) 5.3 10^3/uL (1.7-8.2) 01/03/20 10:00 Absolute Lymphs (auto) 3.3 10^3/uL (0.5-4.7) 01/03/20 10:00 Absolute Monos (auto) 0.8 10^3/uL (0.1-1.4) 01/03/20 10:00 Absolute Eos (auto) 0.2 10^3/uL (0.0-0.6) 01/03/20 10:00 Absolute Basos (auto) 0.1 10^3/uL (0.0-0.2) 01/03/20 10:00 Seg Neutrophils % 55.1 % (42-78) 01/03/20 10:00 PT 12.9 SEC (11.4-15.4) 01/03/20 10:00 INR 0.95 01/03/20 10:00 APTT 30.8 SEC (23.5-35.8) 01/03/20 10:00 D-Dimer 0.69 ug/mL (0.00-0.50) H 01/03/20 10:00 Sodium 138.5 mmol/L (137-145) 01/04/20 05:44 Potassium 3.7 mmol/L (3.6-5.0) 01/04/20 05:44 Chloride 103 mmol/L (98-107) 01/04/20 05:44 Carbon Dioxide 25 mmol/L (22-30) 01/04/20 05:44 Anion Gap 11 (5-19) 01/04/20 05:44 BUN 23 mg/dL (7-20) H 01/04/20 05:44 Creatinine 0.87 mg/dL (0.52-1.25) 01/04/20 05:44 Est GFR ( Amer) > 60 (>60) 01/04/20 05:44 Est GFR (MDRD) Non-Af > 60 (>60) 01/04/20 05:44 Glucose 210 mg/dL (75-110) H 01/04/20 05:44 POC Glucose 159 mg/dL (70-110) H 01/05/20 11:39 Hemoglobin A1c % 8.7 % (4.7-6.0) H 01/04/20 05:44 Calcium 9.3 mg/dL (8.4-10.2) 01/04/20 05:44 Phosphorus 5.4 mg/dL (2.5-4.5) H 01/04/20 05:44 Magnesium 2.0 mg/dL (1.6-2.3) 01/04/20 05:44 Total Bilirubin 0.7 mg/dL (0.2-1.3) 01/03/20 10:00 Direct Bilirubin 0.0 mg/dL (0.0-0.4) 01/03/20 10:00 Neonat Total Bilirubin Not Reportable 01/03/20 10:00 Neonat Direct Bilirubin Not Reportable 01/03/20 10:00 Neonat Indirect Bili Not Reportable 01/03/20 10:00 AST 38 U/L (17-59) 01/03/20 10:00 ALT 35 U/L (<50) 01/03/20 10:00 Alkaline Phosphatase 123 U/L (38-126) 01/03/20 10:00 Creatine Kinase 97 U/L (55-170) 01/03/20 10:00 CK-MB (CK-2) 1.94 ng/mL (<4.55) 01/03/20 10:00 Troponin I < 0.012 ng/mL 01/03/20 12:54 NT-Pro-B Natriuret Pep 418 pg/mL (<125) H 01/03/20 10:00 Total Protein 7.2 g/dL (6.3-8.2) 01/03/20 10:00 Albumin 4.1 g/dL (3.5-5.0) 01/03/20 10:00 Triglycerides 181 mg/dL (<150) H 01/04/20 05:44 Cholesterol 188.58 mg/dL (0-200) 01/04/20 05:44 LDL Cholesterol Direct 155 mg/dL (<100) H 01/04/20 05:44 VLDL Cholesterol 36.2 mg/dL (10-31) H 01/04/20 05:44 HDL Cholesterol 24 mg/dL (>40) L 01/04/20 05:44 TSH 1.71 uIU/mL (0.47-4.68) 01/04/20 05:44 Free T4 1.06 ng/dL (0.78-2.19) 01/04/20 05:44 Urine Color STRAW 01/03/20 10:20 Urine Appearance CLEAR 01/03/20 10:20 Urine pH 7.0 (5.0-9.0) 01/03/20 10:20 Ur Specific [place] 1.010 01/03/20 10:20 Urine Protein 30 mg/dL (NEGATIVE) H 01/03/20 10:20 Urine Glucose (UA) 50 mg/dL (NEGATIVE) H 01/03/20 10:20 Urine Ketones TRACE mg/dL (NEGATIVE) H 01/03/20 10:20 Urine Blood NEGATIVE (NEGATIVE) 01/03/20 10:20 Urine Nitrite NEGATIVE (NEGATIVE) 01/03/20 10:20 Urine Bilirubin NEGATIVE (NEGATIVE) 01/03/20 10:20 Urine Urobilinogen NEGATIVE mg/dL (<2.0) 01/03/20 10:20 Ur Leukocyte Esterase NEGATIVE (NEGATIVE) 01/03/20 10:20 Urine RBC (Auto) 1 /HPF 01/03/20 10:20 U Hyaline Cast (Auto) 1 /LPF 01/03/20 10:20 Urine Ascorbic Acid NEGATIVE (NEGATIVE) 01/03/20 10:20 Urine Opiates Screen NEGATIVE 01/03/20 10:20 Urine Methadone Screen NEGATIVE 01/03/20 10:20 Ur Barbiturates Screen NEGATIVE 01/03/20 10:20 Ur Phencyclidine Scrn NEGATIVE 01/03/20 10:20 Ur Amphetamines Screen NEGATIVE 01/03/20 10:20 U Benzodiazepines Scrn NEGATIVE 01/03/20 10:20 Urine Cocaine Screen NEGATIVE 01/03/20 10:20 U Marijuana (THC) Screen NEGATIVE 01/03/20 10:20 01/03/20 01/03/20 01/03/20 10:00 10:00 12:54 CK-MB (CK-2) 1.94 Troponin I 0.015 < 0.012 NT-Pro-B Natriuret Pep 418 H Impressions: Chest X-Ray 01/03/20 09:54 IMPRESSION: NO ACUTE RADIOGRAPHIC FINDING IN THE CHEST. Chest/Abdomen CTA 01/03/20 11:56 IMPRESSION: NORMAL CTA OF THE CHEST. NO PULMONARY EMBOLI. Renal Artery Duplex 01/05/20 00:00 IMPRESSION: NO DOPPLER EVIDENCE OF HEMODYNAMICALLY SIGNIFICANT RENAL ARTERY STENOSIS. Plan Plan of Treatment: Follow-up with PCP Time Spent: Greater than 30 Minutes Stroke Is this a Stroke Patient?: Yes Stroke Pt being discharged on Anti-thrombolytic therapy?: Yes Stroke Pt being discharged on Anti-coagulation therapy?: Yes Stroke Pt being discharged on Statins?: Yes Acute Heart Failure Is this a Heart Failure Patient?: No
== END 2020-01-05 14:20 | disposition home or self-care (01) ==
LOC: ER 09:50 → EH 14:55 → 4W 18:44
PROVIDERS: ADMIT Internal Medicine; ATTEND Internal Medicine
DX: I48.91 Unspecified atrial fibrillation (principal); I10 Essential (primary) hypertension; E11.59 Type 2 diabetes mellitus with other circulatory complications; E11.65 Type 2 diabetes mellitus with hyperglycemia; I69.351 Hemiplegia and hemiparesis following cerebral infarction affecting right dominant side; Z91.14 Patient's other noncompliance with medication regimen; E78.5 Hyperlipidemia, unspecified; Z59.7 Insufficient social insurance and welfare support; Z59.8 Other problems related to housing and economic circumstances; Z87.891 Personal history of nicotine dependence; Z82.49 Family history of ischemic heart disease and other diseases of the circulatory system; Z23 Encounter for immunization
CPT/HCPCS: 93005; 99285; 96375; 96365; 96366; 36415 ×3; 84439; 82553; 82962 ×3; 82550; 83735 ×2; 84100; 84443; 85025; 85027; 85610; 85730; 80048; 80053; 81001; 84484; 80307; 83036; 82088; 84244; 85379; 80061; 83880; 93306; 71045; 93975; 71275; 90686; 93010; G0378 ×3; G0008; J3490 ×2; J1815 ×2; J1650; 90471

== ENCOUNTER → 2020-01-16 | Outpatient (CLI) | payer OTHER ==
[2020-01-16 09:18] LABS: ABSOLUTE BASOPHILS # (AUTO) 0.1 10^3/uL (0.0-0.2); ABSOLUTE EOSINOPHILS # (AUTO) 0.1 10^3/uL (0.0-0.6); ABSOLUTE LYMPHOCYTES (AUTO) 2.7 10^3/uL (0.5-4.7); ABSOLUTE NEUT (AUTO) 7.9 10^3/uL (1.7-8.2); APPEARANCE,URINE CLEAR; BASOPHILS % (AUTO) 0.6 % (0-2); BILIRUBIN,URINE NEGATIVE (NEGATIVE); COLOR,URINE YELLOW; EOSINOPHILS % (AUTO) 1.2 % (0-6); GLUCOSE, URINE NEGATIVE (NEGATIVE); HEMATOCRIT 41.3 % (37.9-51.0); HEMOGLOBIN 13.9 g/dL (13.5-17.0); KETONES,URINE NEGATIVE (NEGATIVE); LEUKOCYTE ESTERASE,URINE NEGATIVE (NEGATIVE); LYMPHOCYTES % (AUTO) 22.8 % (13-45); MEAN CORPUSCULAR HEMOGLOBIN 27.5 pg (27.0-33.4); MEAN CORPUSCULAR HGB CONC 33.7 g/dL (32.0-36.0); MEAN CORPUSCULAR VOLUME 81 fl (80-97); MONOCYTES % (AUTO) 8.6 % (3-13); NITRITE,URINE NEGATIVE (NEGATIVE); PLATELET COUNT 296 10^3/uL (150-450); PROTEIN,URINE NEGATIVE (NEGATIVE); RED BLOOD COUNT 5.07 10^6/uL (4.35-5.55); RED CELL DISTRIBUTION WIDTH 13.2 % (11.5-14.0); SEGMENTED NEUTROPHILS % (AUTO) 66.8 % (42-78); TOTAL CELLS COUNTED % (AUTO) 100 %; URINE SPECIFIC GRAVITY 1.016; UROBILINOGEN,URINE NEGATIVE mg/dL (<2.0); WHITE BLOOD COUNT 11.8 10^3/uL (4.0-10.5)
[2020-01-16 09:39] LABS: UR PRO/CREAT RATIO RESULT 0.1 mg/mg (0.0-0.2); URINE PROTEIN 8.1 mg/dL (<12)
[2020-01-16 10:15] LABS: ALKALINE PHOSPHATASE 99 U/L (38-126); ANION GAP 11 (5-19); ASPARTATE AMINO TRANSFERASE 25 U/L (17-59); BILIRUBIN,DIRECT 0.2 mg/dL (0.0-0.4); BILIRUBIN,TOTAL 0.5 mg/dL (0.2-1.3); BLOOD UREA NITROGEN 31 mg/dL (7-20); CALCIUM 10.2 mg/dL (8.4-10.2); CARBON DIOXIDE 27 mmol/L (22-30); CHLORIDE 101 mmol/L (98-107); CHOLESTEROL 100.25 mg/dL (0-200); GLUCOSE 129 mg/dL (75-110); POTASSIUM 4.7 mmol/L (3.6-5.0); TRIGLYCERIDES 83 mg/dL (<150)
[2020-01-16 10:25] LABS: DIRECT LDL 52 mg/dL (<100)
== END ==
LOC: CCC 08:31
PROVIDERS: ATTEND Family Medicine
DX: Z13.9 Encounter for screening, unspecified (principal)
CPT/HCPCS: 36415; 80053; 80061; 81001; 82570; 83036; 84156; 84443; 85025